=== PATIENT | male | born 1935 | race Caucasian/White ===

== ENCOUNTER → 2017-01-18 | Outpatient (CLI) | payer OTHER, MEDICARE | LOC: BHFA 10:00 | PROVIDERS: ATTEND Internal Medicine | DX: I25.10 Atherosclerotic heart disease of native coronary artery without angina pectoris (principal); R06.00 Dyspnea, unspecified ==

== ENCOUNTER → 2017-01-19 | Outpatient (CLI) | payer OTHER, MEDICARE | LOC: BHFA 13:00 | PROVIDERS: ATTEND Internal Medicine Cardiovascular Disease | DX: R07.9 Chest pain, unspecified (principal); I48.91 Unspecified atrial fibrillation | CPT/HCPCS: 78452; 93017; A9500; J2785 ==

== ENCOUNTER → 2017-04-14 | Outpatient (CLI) | payer OTHER, MEDICARE | LOC: BHFA 10:15 | PROVIDERS: ATTEND Internal Medicine Cardiovascular Disease | DX: I48.91 Unspecified atrial fibrillation (principal) ==

== ENCOUNTER 2017-05-13 11:11 | Day surgery (SDC) | payer OTHER, MEDICARE ==
[2017-05-13] MEDS ORDERED: MIDAZOLAM 2 MG/2 ML VIAL IVP ONE (11:21)
[2017-05-13] MEDS ORDERED: NS 1,000 ML IV ONE (11:21)
--- NOTE | 2017-05-13 11:37 | CPEKG ---
Heart Rate: 76 RR Interval: 789 P-R Interval: 228 QRSD Interval: 76 QT Interval: 312 QTC Interval: 351 P [place]: -42 QRS [place]: 14 T Wave [place]: 214 EKG Severity - ABNORMAL ECG - EKG Impression: SINUS RHYTHM EKG Impression: FIRST DEGREE AV BLOCK EKG Impression: CONSIDER ANTEROSEPTAL INFARCT EKG Impression: REPOL ABNRM SUGGESTS ISCHEMIA, LATERAL LEADS Electronically Signed By: Jeovanny Whittaker 13-May-2017 17:10:28
[2017-05-13 12:05] LABS: % IMMATURE GRANULYOCYTES 0.2 % (0.0-1.1); ABSOLUTE IMMATURE GRANULOCYTES 0.01 10^3/uL (0.00-0.10); ADD DIFF? NO; ADD MORPH? NO; ADD SCAN? NO; ATYPICAL LYMPHOCYTE FLAG 10 (0-99); FRAGMENT RBC FLAG 0 (0-99); HEMOGLOBIN 15.5 g/dL (13.7-17.5); LEFT SHIFT FLG 0 (0-99); LIPEMIA HEMOLYSIS FLAG 90 (0-99); MEAN CELL HEMOGLOBIN 30.3 pg (27.9-34.1); MEAN CELL HEMOGLOBIN CONCENTR. 34.4 g/dL (32.4-36.7); MEAN CELL VOLUME 87.9 fL (81.5-99.8); MEAN PLATELET VOLUME 9.6 fL (8.7-11.7); PLATELET CLUMPS FLAG 0 (0-99); PLATELET COUNT 168 10^3/uL (150-400); RED BLOOD CELL COUNT 5.12 10^6/uL (4.40-6.38); RED CELL DISTRIBUTION WIDTH 14.6 % (11.5-15.2)
[2017-05-13 12:15] LABS: ANION GAP 11 mEq/L (8-16); CALCIUM 9.6 mg/dL (8.5-10.4); CARBON DIOXIDE 20 mEq/l (22-31); CHLORIDE 109 mEq/L (97-110); CREATININE 1.1 mg/dL (0.7-1.3); GLOMERULAR FILTRATION RATE > 60; GLUCOSE 98 mg/dL (70-100); POTASSIUM 4.4 mEq/L (3.5-5.2); SODIUM 140 mEq/L (134-144)
[2017-05-13 12:19] LABS: INR 1.13 (0.83-1.16); PROTIME(PATIENT) 14.4 SEC (12.0-15.0)
[2017-05-13 12:20] LABS: APTT 36.3 SEC (23.0-38.0)
[2017-05-13] MEDS ORDERED: LIDOCAINE 1% 300 MG/30 ML SDV ONE (12:20)
[2017-05-13] MEDS ORDERED: BUPIVACAINE 0.5% 30 ML SDV ONE (12:20)
[2017-05-13] MEDS ORDERED: ceFAZolin 2 GM/DEXTROSE 100 ML IV ONE (13:00)
[2017-05-13] MEDS ORDERED: BACITRACIN IRRIGATION/NS 50,000 UNITS/1,000 ML BTL IRR ONE (13:00)
[2017-05-13] MEDS ORDERED: ATROPINE SULFATE 1 MG/10 ML SYR ONE (14:19)
--- NOTE | 2017-05-14 07:59 | EPPROC ---
Electrophysiology Procedure Note: DIAGNOSTIC ELECTROPHYSIOLOGIC STUDY Procedures performed: 1. Fluoroscopy 2. EP evaluation with RA/RV pace/record, with arrhythmia induction 3. EP evaluation with RA/RV pace record, insert/reposition catheter, with arrhythmia induction INDICATION: This is a 81 yr old male with past history of CAD s/p CABG s/p FL, moderate , who had LINQ implanted for syncope. Pt had NSVT on LINQ monitor. It was unclear if there was a possibility of sustained VT as etiology of previous syncope and hence it was decided to perform EP study for induction of sustained VT. PROCEDURE: Catheters & Anesthesia: The patient arrived in the Electrophysiology Laboratory in the fasting state. The right clavicular region, right groin, & left groin area were prepped & draped in the usual sterile manner. LMA sedation was administered by anesthesiologist. Appropriate non-invasive blood pressure, pulse oximetry & end -tidal CO2 monitoring was established. All catheters were placed percutaneously using the modified Seldinger technique , and advanced into position under fluoroscopic guidance. One 7F sheath was placed in the RFV and through this Livewire was placed. Programmed stimulation was performed from the right ventricle . Ventricular programmed stimulation was performed using standard protocol (2 pacing sites, 2 basic cycle lengths, up to 3 extrastimuli at twice pacing threshold). Ventricular burst pacing and long/short sequence pacing was also performed. The catheters were removed. The patient was transferred to the cardiovascular holding area in stable condition. Vascular access sheaths were removed in the holding area. There were no apparent complications. Results: A. Spontaneous Intervals: Pre ablation SCL 898 ms AH 189 ms HV 59 ms VERP 600/270ms 400/200ms CONCLUSIONS 1. Normal sinus and AV node function. 2. No evidence of accesory AV pathway presence. 3. No sustained arrhythmias induced. 4. No apparent complications.
== END 2017-05-13 18:25 | disposition home or self-care (01) ==
LOC: FCATH 11:11 → UNDOADMOB 11:11 → F2W 11:11 → EDSTATUS 14:00 → FCATH 18:25
PROVIDERS: ATTEND Internal Medicine Cardiovascular Disease
PROC: 4A023FZ Measurement of Cardiac Rhythm, Percutaneous Approach (ICD-10-PCS; principal; 2017-05-13)
DX: I47.2 Ventricular tachycardia (principal); I25.10 Atherosclerotic heart disease of native coronary artery without angina pectoris; I25.2 Old myocardial infarction; Z95.1 Presence of aortocoronary bypass graft
CPT/HCPCS: C1730; J0461; J0690; J1644

== ENCOUNTER → 2018-03-22 | Outpatient (CLI) | payer OTHER, MEDICARE | LOC: BHFA 10:00 | PROVIDERS: ATTEND Internal Medicine Cardiovascular Disease | DX: I48.91 Unspecified atrial fibrillation (principal); R06.02 Shortness of breath ==

== ENCOUNTER 2018-10-23 13:32 | Inpatient (IN) | payer OTHER, MEDICARE ==
--- NOTE | 2018-10-23 14:33 | EDPHY ---
HPI/HX/ROS/PE/MDM Narrative: CHIEF COMPLAINT: "Bad EKG", fatigue HISTORY OF PRESENT ILLNESS: The patient is an anticoagulated (Warfarin) 82 y/ o male with a complicated medical history complaining of fatigue. He has a history of quadruple bypass, aortic heart valve replacement (bovine), cervical surgery, PEs, and antiphospholipid syndrome. He lives in [place] and has been going to cardiac and pulmonary rehab after his valve replacement. Rehab involves exercise while on cardiac monitors. On Wednesday, his therapist noted a lower than normal oxygen level and discontinued therapy when his blood pressure dropped while exercising. He went to his primary care provider on Wednesday at which time he was noted to have an abnormal EKG. Dr. Whittaker was consulted and advised he go to the ED for troponins. He did not want to go to an ED near where he lives so he made the drive here today. He reports increasing fatigue and some lightheadedness. He denies chest pain, shortness of breath, recent illness, or any other associated symptoms. No fever, chills, palpitations, vomiting, diarrhea, urinary complaints, headache. REVIEW OF SYSTEMS: A comprehensive 10 system review of systems is otherwise negative aside from elements mentioned in the history of present illness and medical decision making PAST MEDICAL HISTORY: Quadruple bypass, Bovine aortic valve replacement, cervical spine surgery, PEs, COPD, antiphospholipid syndrome SOCIAL HISTORY: at bedside, lives in [place], retired, nephew lives in [place] VITAL SIGNS: Reviewed by me. Slightly bradycardic on the monitor. GENERAL: Pleasant elderly male. No obvious distress. Alert. HEENT: Atraumatic. Eyes: No icterus, no injection. Mouth: moist mucous membranes. No erythema or lesions. Neck: supple with no adenopathy. LUNGS: Breath sounds diminished throughout, no wheezes, rhonchi or rales. CARDIAC: Bradycardic but regular rate and rhythm, no rubs, murmurs or gallops. ABDOMEN: Soft, nontender, nondistended, bowel sounds normal. BACK: No CVA tenderness. EXTREMITIES: No trauma. No edema. Range of motion is normal throughout. NEURO: Alert and oriented, grossly nonfocal. SKIN: Warm and dry, no rash. PSYCHIATRIC: Normal mentation, no agitation. ED Course: 12-LEAD EKG: Please see the full report in [facility]. My interpretation: prolonged NM interval, previous infarct, right bundle branch block with lateral ST depression Study: X-ray of the chest Indication: Fatigue, abnormal EKG Results: X-ray of the chest was obtained. The results of the study are: Negative for acute findings The study was read by the radiologist, Dr. Ennis. I viewed the images myself on the PACS system. The patient presents with fatigue and an abnormal EKG. He reports associated lightheadedness. EKG here demonstrates a right bundle-branch block, which is previously known, and Abnormal EKG causing concern was an increasing NM interval. Plan for CBC, basic metabolic panel, coagulation panel, troponin, BNP , chest x-ray, and EKG. 3:45 PM - I obtained the previous EKG from [place]. Hand written notations note a possible new right bundle branch block and prolonging NM interval. Patient will be admitted to the hospitalist service here with Cardiology consultation. Course discussed with Dr. Juan who accepts admission. MDM: Differential diagnosis of the patient's weakness and fatigue was considered including but not limited to electrolyte abnormality, anemia, cardiac ischemia, arrhythmias, bradycardia, and infectious causes. - Data Points Imaging Results: Imaging Impressions Chest X-Ray 10/23/18 14:34 Impression: 1. Bibasilar atelectasis and asymmetric elevation right hemidiaphragm. 2. Minimal cardiomegaly. No failure or effusion. Laboratory Results: Laboratory Results 10/23/18 14:24 10/23/18 14:24 10/23/18 10/23/18 10/23/18 14:30 14:24 14:24 WBC RBC Hgb Hct MCV MCH MCHC RDW Plt Count MPV Neut % (Auto) Lymph % (Auto) Webb % (Auto) Eos % (Auto) Baso % (Auto) Nucleat RBC Rel Count Absolute Neuts (auto) Absolute Lymphs (auto) Absolute Monos (auto) Absolute Eos (auto) Absolute Basos (auto) Absolute Nucleated RBC Immature Gran % Immature Gran # PT INR APTT Sodium Potassium Chloride Carbon Dioxide Anion Gap BUN Creatinine Estimated GFR Glucose Calcium POC Troponin I 0.00 ng/mL ng/mL (0.00-0.08) Troponin I < 0.012 ng/mL ng/mL (0.000-0.034) NT-Pro-B Natriuret Pep 444 pg/mL pg/mL (0-450) TSH 1.210 uIU/mL uIU/mL (0.465-4.680) 10/23/18 10/23/18 10/23/18 14:24 14:24 14:24 WBC 5.40 10^3/uL 10^3/uL (3.80-9.50) RBC 4.42 10^6/uL 10^6/uL (4.40-6.38) Hgb 13.6 g/dL L g/dL (13.7-17.5) Hct 40.5 % % (40.0-51.0) MCV 91.6 fL fL (81.5-99.8) MCH 30.8 pg pg (27.9-34.1) MCHC 33.6 g/dL g/dL (32.4-36.7) RDW 13.3 % % (11.5-15.2) Plt Count 137 10^3/uL L 10^3/uL (150-400) MPV 10.2 fL fL (8.7-11.7) Neut % (Auto) 60.9 % % (39.3-74.2) Lymph % (Auto) 19.6 % % (15.0-45.0) Webb % (Auto) 13.9 % H % (4.5-13.0) Eos % (Auto) 4.3 % % (0.6-7.6) Baso % (Auto) 0.9 % % (0.3-1.7) Nucleat RBC Rel Count 0.0 % % (0.0-0.2) Absolute Neuts (auto) 3.29 10^3/uL 10^3/uL (1.70-6.50) Absolute Lymphs (auto) 1.06 10^3/uL 10^3/uL (1.00-3.00) Absolute Monos (auto) 0.75 10^3/uL 10^3/uL (0.30-0.80) Absolute Eos (auto) 0.23 10^3/uL 10^3/uL (0.03-0.40) Absolute Basos (auto) 0.05 10^3/uL 10^3/uL (0.02-0.10) Absolute Nucleated RBC 0.00 10^3/uL 10^3/uL (0-0.01) Immature Gran % 0.4 % % (0.0-1.1) Immature Gran # 0.02 10^3/uL 10^3/uL (0.00-0.10) PT 23.2 SEC H SEC (12.0-15.0) INR 2.05 H (0.83-1.16) APTT 44.8 SEC H SEC (23.0-38.0) Sodium 139 mEq/L mEq/L (135-145) Potassium 4.6 mEq/L mEq/L (3.3-5.0) Chloride 106 mEq/L mEq/L (97-110) Carbon Dioxide 25 mEq/l mEq/l (22-31) Anion Gap 8 mEq/L mEq/L (6-14) BUN 33 mg/dL H mg/dL (7-23) Creatinine 1.3 mg/dL mg/dL (0.7-1.3) Estimated GFR 53 Glucose 112 mg/dL H mg/dL (70-100) Calcium 9.4 mg/dL mg/dL (8.5-10.4) POC Troponin I Troponin I NT-Pro-B Natriuret Pep TSH Medications Given: Acetaminophen (Tylenol) 650 mg PO Q4HRS PRN PRN Reason: Pain, Mild/Fever, Can Take PO Stop: 04/21/19 17:37 Last Admin: 10/23/18 19:51 Dose: 650 mg Rosuvastatin Calcium (Crestor) 10 mg PO [facility] Stop: 04/21/19 20:59 Last Admin: 10/23/18 19:53 Dose: Not Given Warfarin Sodium (Coumadin) 4 mg PO [facility] Stop: 04/21/19 20:59 Last Admin: 10/23/18 19:50 Dose: 4 mg Point of Care Test Results: Chemistry 10/23/18 14:30 POC Troponin I 0.00 ng/mL ng/mL (0.00-0.08) General Time Seen by Provider: 10/23/18 14:06 Initial Vital Signs: Initial Vital Signs Temperature (C) 36.6 C 10/23/18 13:44 Heart Rate 48 L 10/23/18 13:44 Respiratory Rate 16 10/23/18 13:44 Blood Pressure 142/71 H 10/23/18 13:44 O2 Sat (%) 91 L 10/23/18 13:44 O2 Delivery Mode Room Air Allergies/Adverse Reactions: tramadol Allergy (Intermediate, Verified 10/23/18 13:40) Other-Enter Comments Home Medications: Medication Instructions Recorded Aspirin [Aspirin 81mg (OTC)] 81 mg PO DAILY 04/10/16 Pantoprazole Sodium [Protonix] 40 mg PO DAILY 04/10/16 Thyroid,Pork [[place] Thyroid] 90 mg PO DAILY 04/10/16 Multivitamins [Multivitamin (*)] 1 each PO DAILY 05/13/17 inFLIXimab [Remicade Inj 100 mg 1 each IV Q56D 05/13/17 (*)] Acetaminophen [Tylenol ES 500 mg 1,500 mg PO HS 10/23/18 (*)] Herbals/Supplements -Info Only 1 ea PO DAILY 10/23/18 Naproxen Sodium [Aleve 220 MG (*)] 440 mg PO DAILY 10/23/18 Rosuvastatin Calcium [Crestor 20mg 10 mg PO HS 10/23/18 (*)] Warfarin Sodium [Coumadin 4MG (*)] 4 mg PO HS 10/23/18 Departure - Departure Disposition: [facility] Inpatient Acute Clinical Impression: Abnormal EKG Fatigue Qualifiers: Fatigue type: unspecified Qualified Code(s): R53.83 - Other fatigue Condition: Fair Report Scribed for: Rose Bolanos Report Scribed by: Radha Sullivan Date of Report: 10/23/18 Time of Report: 15:45 Physician Review and Approval Statement: Portions of this note were transcribed by a medical receptionist medical assistant. I personally performed a history, physical exam, medical decision making, and confirmed accuracy of information the transcribed note.
[2018-10-23 14:42] LABS: PLATELET COUNT 137 10^3/uL (150-400)
[2018-10-23 14:52] LABS: INR 2.05 (0.83-1.16); PROTIME(PATIENT) 23.2 SEC (12.0-15.0)
--- NOTE | 2018-10-23 15:29 | CPEKG ---
Test Reason : OPEN Blood Pressure : / mmHG Vent. Rate : 056 BPM Atrial Rate : 056 BPM P-R Int : 310 ms QRS Dur : 123 ms QT Int : 427 ms P-R-T Axes : 078 -09 011 degrees QTc Int : 413 ms Sinus rhythm Prolonged MT interval Right bundle branch block Inferior infarct, old Confirmed by Joao Teresa ([id number]) on 10/23/2018 3:29:08 PM Referred By: Confirmed By:Joao Teresa
--- NOTE | 2018-10-23 17:12 | PDGENHP ---
History and Physical - Chief Complaint fatigue, abnormal ECG - History of Present Illness 82yo M with extensive cardiovascular history (CAD s/p CABG, carotid stenosis s/ p CEA, AAA s/p endovascular repair, s/p TAVR, atrial fib/flutter, PE on OAC) , COPD presents at recommendation of his cardiology group due to abnormal ECG findings. He was at pulmonary rehab yesterday and he was more hypoxic than usual (requiring 4L instead of 2L) and also reportedly had hypotension with exercise. An ECG was performed which showed RBBB and worsening 1st degree AV block (MO 240s in 2017, 300s yesterday). The providers at rehab contacted his cardiologists office and spoke with Jeovanny Whittaker who recommended that he go to the ED. The patient didn't go yesterday because he didn't want to go to the ED in [place] where he lives so he and his drove 4 hours to [facility] today. Patient only reports worsening of his chronic fatigue. He denies chest pain, palpitations, presyncope/syncope, worsening dyspnea, leg swelling, orthopnea. He reports that his HR gets up to 90-100s at rehab. In the ED, his HR was initially in the upper 40s with stable BP and mentation. ECG showed a RBBB and prolonged MO interval of 310. An initial troponin was negative. He is being investigated for further investigation of his heart block , bradycardia, and hypotension. Case discussed with ED physician Rose Bolanos. History Information - Allergies/Home Medication List Allergies/Adverse Reactions: tramadol Allergy (Intermediate, Verified 10/23/18 13:40) Other-Enter Comments Home Medications: Aspirin [Aspirin 81mg (OTC)] 81 mg PO DAILY 04/10/16 [Last Taken 10/23/18] Pantoprazole Sodium [Protonix] 40 mg PO DAILY 04/10/16 [Last Taken 10/23/18] Thyroid,Pork [Clear Thyroid] 90 mg PO DAILY 04/10/16 [Last Taken 10/23/18] Multivitamins [Multivitamin (*)] 1 each PO DAILY 05/13/17 [Last Taken 10/23/18] inFLIXimab [Remicade Inj 100 mg (*)] 1 each IV Q56D 05/13/17 [Last Taken ] Herbals/Supplements -Info Only 1 ea PO DAILY 10/23/18 [Last Taken Unknown] Rosuvastatin Calcium [Crestor 20mg (*)] 10 mg PO HS 10/23/18 [Last Taken ] Warfarin Sodium [Coumadin 4MG (*)] 4 mg PO HS 10/23/18 [Last Taken 10/22/18] I have personally reviewed and updated: family history, medical history, social history, surgical history - Past Medical History Additional medical history: CAD/anterior [place] s/p CABG (2008), aortic stenosis s/ p TAVR (11/2017), TIA, carotid stenosis s/p CEA (1997), AAA s/p endovascular repair (2012), PE x2 after TAVR with ? antiphospholipid syndrome, atrial fibrillation/flutter, upper GI bleed 2/2 duodenal ulcer, ? IBD, HTN, HLD, chronic exertional hypoxia requiring 2L - Surgical History Additional surgical history: CABG, right endarterectomy, C-spine surgery, AAA repair, TAVR - Family History Positive for: non-pertinent - Social History Smoking Status: Former smoker Alcohol Use: None Drug Use: None Additional social history: Lives with in [place]. Retired air cargo specialist. Review of Systems Review of Systems: ROS: 10pt was reviewed & negative except for what was stated in HPI & below Physical Exam Physical Exam: Temp Pulse Resp BP Pulse Ox 36.6 C 81 16 133/79 H 97 10/23/18 13:44 10/23/18 16:47 10/23/18 16:47 10/23/18 16:47 10/23/18 16:47 Constitutional: no apparent distress, appears nourished, not in pain Eyes: PERRL, anicteric sclera, EOMI Ears, Nose, Mouth, Throat: moist mucous membranes, hearing normal, ears appear normal, no oral mucosal ulcers Cardiovascular: regular rate and rhythym, no murmur, rub, or gallop, systolic murmur, No JVD, No edema Respiratory: no respiratory distress, no rales or rhonchi, clear to auscultation Gastrointestinal: normoactive bowel sounds, soft, non-tender abdomen, no palpable masses Genitourinary: no bladder fullness, no bladder tenderness Skin: warm, normal color, no rashes or abrasions, no fluctuance, no induration, No mottled Musculoskeletal: full muscle strength, no muscle tenderness, normal joint ROM, no joint effusions Neurologic: AAOx3 Psychiatric: interacting appropriately, not anxious, not encephalopathic, thought process linear Lab Data & Imaging Review 10/23/18 14:24 10/23/18 14:24 WBC 5.40 10^3/uL (3.80-9.50) 10/23/18 14:24 RBC 4.42 10^6/uL (4.40-6.38) 10/23/18 14:24 Hgb 13.6 g/dL (13.7-17.5) L 10/23/18 14:24 Hct 40.5 % (40.0-51.0) 10/23/18 14:24 MCV 91.6 fL (81.5-99.8) 10/23/18 14:24 MCH 30.8 pg (27.9-34.1) 10/23/18 14:24 MCHC 33.6 g/dL (32.4-36.7) 10/23/18 14:24 RDW 13.3 % (11.5-15.2) 10/23/18 14:24 Plt Count 137 10^3/uL (150-400) L 10/23/18 14:24 MPV 10.2 fL (8.7-11.7) 10/23/18 14:24 Neut % (Auto) 60.9 % (39.3-74.2) 10/23/18 14:24 Lymph % (Auto) 19.6 % (15.0-45.0) 10/23/18 14:24 Meagher % (Auto) 13.9 % (4.5-13.0) H 10/23/18 14:24 Eos % (Auto) 4.3 % (0.6-7.6) 10/23/18 14:24 Baso % (Auto) 0.9 % (0.3-1.7) 10/23/18 14:24 Nucleat RBC Rel Count 0.0 % (0.0-0.2) 10/23/18 14:24 Absolute Neuts (auto) 3.29 10^3/uL (1.70-6.50) 10/23/18 14:24 Absolute Lymphs (auto) 1.06 10^3/uL (1.00-3.00) 10/23/18 14:24 Absolute Monos (auto) 0.75 10^3/uL (0.30-0.80) 10/23/18 14:24 Absolute Eos (auto) 0.23 10^3/uL (0.03-0.40) 10/23/18 14:24 Absolute Basos (auto) 0.05 10^3/uL (0.02-0.10) 10/23/18 14:24 Absolute Nucleated RBC 0.00 10^3/uL (0-0.01) 10/23/18 14:24 Immature Gran % 0.4 % (0.0-1.1) 10/23/18 14:24 Immature Gran # 0.02 10^3/uL (0.00-0.10) 10/23/18 14:24 PT 23.2 SEC (12.0-15.0) H 10/23/18 14:24 INR 2.05 (0.83-1.16) H 10/23/18 14:24 APTT 44.8 SEC (23.0-38.0) H 10/23/18 14:24 Sodium 139 mEq/L (135-145) 10/23/18 14:24 Potassium 4.6 mEq/L (3.3-5.0) 10/23/18 14:24 Chloride 106 mEq/L (97-110) 10/23/18 14:24 Carbon Dioxide 25 mEq/l (22-31) 10/23/18 14:24 Anion Gap 8 mEq/L (6-14) 10/23/18 14:24 BUN 33 mg/dL (7-23) H 10/23/18 14:24 Creatinine 1.3 mg/dL (0.7-1.3) 10/23/18 14:24 Estimated GFR 53 10/23/18 14:24 Glucose 112 mg/dL (70-100) H 10/23/18 14:24 Calcium 9.4 mg/dL (8.5-10.4) 10/23/18 14:24 POC Troponin I 0.00 ng/mL (0.00-0.08) 10/23/18 14:30 NT-Pro-B Natriuret Pep 444 pg/mL (0-450) 10/23/18 14:24 Visualized and Interpreted Chest x-ray results: Yes Interpretation: CXR: elevated R hemidiaphragm (new), bibasilar atelectasis, sternotomy wires, prosthetic aortic valve, no focal infiltrate or effusion, no pulmonary edema Visualized and Interpreted EKG results: Yes EKG additional interpertation: ECG: sinus with 1st degree AV block (MO 310), RBBB w/repol abnormalities (seen on 2010 ECG but not most recent from 2016), ST depressions laterally (old) Assessment & Plan Assessment: 82yo M with extensive cardiovascular history (CAD s/p CABG, carotid stenosis s/ p CEA, AAA s/p endovascular repair, s/p TAVR, atrial fib/flutter, PE on OAC) , COPD presents at recommendation of his cardiology group due to abnormal ECG findings and hypotension while at rehab. Plan: 1. Bradycardia with worsened 1st degree AV block: MO interval has gone from mid- 200s to low-300s. HR and BP stable now but reportedly had episode of hypotension at rehab. Grossly asymptomatic. - No AV aditi agents - No need for emergent pacemaker - Trend troponin/ecg - Telemetry - TTE - Consult cardiology in AM, interrogate LINQ (last done 10/05, minimum HR 39 , rates mostly 50-90) - Depending on above results, consider ischemic evaluation 2. Right bundle branch block: New since 07/2017 ECG but he's had a PE since then so this isn't necessarily surprising. Has also had on prior ECGs. 3. Chronic fatigue: Unclear if this is related to #1. He hasn't had significant change as of late. 4. CAD s/p CABG: No anginal symptoms currently. Continue aspirin, statin. Apparel Rental Clerk is Cedric Patten. 5. H/o PE: Occurred after TAVR. On warfarin, INR goal 2-3. 6. Aortic stenosis s/p TAVR 11/2017 7. Atrial fibrillation/flutter: [id number], on OAC. Sinus on admit 8. ? antiphospholipid syndrome: Reportedly discovered after PE in November. Odd that this would be discovered in 8th decade of life with no prior clots. Sees Dr Pierre. On warfarin. 9. Thrombocytopenia: Mild, chronic. Diet: cardiac, NPO at midnight Code: DNR Dispo: Admit under observation
[2018-10-23] MEDS ORDERED: ONDANSETRON 4 MG/2 ML VIAL IVP PRN (17:38)
[2018-10-23] MEDS ORDERED: ACETAMINOPHEN 325 MG TAB PO PRN (17:38)
[2018-10-23] MEDS ORDERED: ONDANSETRON DISINTEGRATING 4 MG TAB PO PRN (17:38)
[2018-10-23] MEDS: WARFARIN SODIUM 4 MG TAB PO SCH (19:50)
[2018-10-23] MEDS: ROSUVASTATIN CALCIUM 20 MG TAB PO SCH (19:53)
[2018-10-24 04:49] LABS: INR 2.23 (0.83-1.16); PLATELET COUNT 136 10^3/uL (150-400); PROTIME(PATIENT) 24.7 SEC (12.0-15.0)
--- NOTE | 2018-10-24 09:51 | HOSPPROG ---
Hospitalist Progress Note Assessment/Plan: 82 year old male with pmh of CAD ,s/p CABG, PE on coumadin, HTN, HLD, COPD, chronic hypoxia here with symptomatic bradycardia and 1st degree ab block Bradycardia- ECG reviewed and with 1st degree AV block, which is not new. Telemetry showing rates in the 50s vitals remain stable however. Case discussed with cardiology who will interrogate LINQ. -await device interrogation -TTE pending -monitor on telemetry PE on coumadin- multiple PEs which occurred on anticoagulation. On coumadin with INR goal 2-3. CAD- s/p 4 vessel CABG. on crestor, asa, No evidence of new ischemia, and no angina COPD- supposed to be on 2 liters in [place] but per patient is non compliant. PRN nebs, and oxygen PRN HLD- cont crestor. IBD-receives rituxan infusions. Hypothyroid- on armour. TSH WNL Subjective: generalized fatigue but no chest pain, sob, faintness or dizziness Objective: Vital Signs Temp Pulse Resp BP Pulse Ox 36.5 C 90 16 136/70 H 92 10/24/18 07:46 10/24/18 07:46 10/24/18 07:46 10/24/18 07:46 10/24/18 07:46 Laboratory Results 10/24/18 03:55 10/24/18 03:55 10/23/18 10/24/18 10/25/18 05:59 05:59 05:59 Intake Total 300 200 Balance 300 200 PT 24.7 SEC (12.0-15.0) H 10/24/18 03:55 INR 2.23 (0.83-1.16) H 10/24/18 03:55 - Physical Exam Constitutional: no apparent distress, appears nourished, not in pain Eyes: PERRL, anicteric sclera, EOMI Ears, Nose, Mouth, Throat: moist mucous membranes, hearing normal, ears appear normal, no oral mucosal ulcers Cardiovascular: bradycardia Respiratory: no respiratory distress, no rales or rhonchi, clear to auscultation Gastrointestinal: normoactive bowel sounds, soft, non-tender abdomen, no palpable masses Genitourinary: no bladder fullness, no bladder tenderness, no renal bruits Skin: no rashes or abrasions, no fluctuance, no induration Musculoskeletal: full muscle strength, no muscle tenderness, normal joint ROM Neurologic: AAOx3, sensation intact bilaterally Psychiatric: interacting appropriately, not anxious, not encephalopathic, thought process linear Lymph, Heme, Immunologic: no cervical LAD, no supraclavicular LAD ICD10 Worksheet Patient Problems: Problems Problem Status Onset Abnormal EKG Acute Fatigue Acute
[2018-10-24] MEDS: ASPIRIN 81 MG CHEWABLE TAB PO SCH (10:02)
[2018-10-24] MEDS: THYROID 60 MG TAB PO SCH (10:02)
[2018-10-24] MEDS: PANTOPRAZOLE SODIUM 40 MG TAB PO SCH (10:02)
--- NOTE | 2018-10-24 14:57 | ECHO ---
[email or web address] [address] [address] Main: [phone] Fax: Transthoracic Echocardiogram Name: HIEN ACEVEDO MR#: [id number] Study Date: 10/24/2018 Study Time: 09:35 AM Date of : 1935 Age: 82 year(s) Height: 172.7 cm (68 in.) Weight: 80.29 kg (177 lb.) BSA: 1.94 m2 Gender: Male Examination: Echo Indication: Post TAVR at [facility]/new EKG changes Image Quality: Contrast: Requested by: Miguel Juan BP: 136 mmHg/70 mmHg Heart Rate: Rhythm: Indication: Post TAVR at [facility]/new EKG changes Procedure Staff Assistant Editor: Velma Gage RDCS Reading Physician: Chano Smith MD Requesting Provider: Conclusions: Normal size left ventricle. No LV hypertrophy. Normal global systolic LV function. The ejection fraction is estimated to be 50-55 %. No regional wall motion abnormality. Diastolic dysfunction is present. . Normal size right ventricle. The left atrium is moderately to severely dilated. The right atrium is normal in size. Mild mitral annular calcification. Mild mitral valve regurgitation is present. There is no aortic valve regurgitation. TAVR in place. AV max PG is 25mmHG. AV mean PG is 13mmHG.. The tricuspid valve is normal in appearance and function. Mild tricuspid regurgitation is present. RVSP is 37mHG.. The pulmonic valve is normal in appearance and function. Trivial pulmonic valve regurgitation. The aorta is normal. No pericardial effusion. The peak and mean velocities across the TAVR have decreased compared to the study dated 03/22/2018. Previous peak and mean were 30 and 14mmHg and are now measured at 25 and 13mmHg. The pulmonary pressure has decreased from 48 to 37mmHg. There are no other significant changes. Measurements: Chambers Valvular Assessment AV/MV Valvular Assessment TV/PV Normal Normal Normal Name Value Range Name Value Range Name Value Range Patient: HIEN ACEVEDO Study Date: 10/24/2018 Page 1 of 2 09:35 AM IVSd (2D): 0.9 cm (0.6 cm-1.1 AV Vmax: 2.48 m/s (1 m/s-1.7 TR Vmax: 2.84 mm/s ( - ) cm) m/s) TR PGmax: 32 mmHg ( - ) LVDd (2D): 4.9 cm (4.2 cm-5.9 AV meanP mmHg ( - ) syst. PAP: 37 mmHg ( - ) cm) MV E Vmax: 0.88 m/s ( - ) LVDs (2D): 3.0 cm (2.1 cm-4 MV A Vmax: 1.08 m/s ( - ) cm) MV E/A: 0.81 ( - ) LVPWd (2D): 1.0 cm (0.6 cm-1 cm) LVOTd 2.1 cm 2.1 cm mm EF Range: 50-55 % Continued Measurements: Chambers Valvular Assessment AV/MV Valvular Assessment TV/PV Name Value Name Value Name Value LADs: 5.2 cm MV E' Septal: 0.04 m/s CVP (est.): 5 mmHg LADs Lon.5 cm MV E/E' Septal: 19.70 LA Area: 27.2 cm2 MV E/E' Lateral: 10.50 LA Volume: 86 ml LA Volume Index: 44.3 ml/m2 Additional Vessels Name Value Ao Ascendin.6 cm Findings: Left Ventricle: Normal size left ventricle. No LV hypertrophy. Normal global systolic LV function. The ejection fraction is estimated to be 50-55 %. No regional wall motion abnormality. Diastolic dysfunction is present. . Right Ventricle: Normal size right ventricle. Left Atrium: The left atrium is moderately to severely dilated. Right Atrium: The right atrium is normal in size. Mitral Valve: Mild mitral annular calcification. Mild mitral valve regurgitation is present. Aortic Valve: There is no aortic valve regurgitation. TAVR in place. AV max PG is 25mmHG. AV mean PG is 13mmHG.. Tricuspid Valve: The tricuspid valve is normal in appearance and function. Mild tricuspid regurgitation is present. RVSP is 37mHG.. Pulmonic Valve: The pulmonic valve is normal in appearance and function. Trivial pulmonic valve regurgitation. Aorta: The aorta is normal. Pericardium: No pericardial effusion. (No Signature Object) Patient: HIEN ACEVEDO Study Date: 10/24/2018 Page 2 of 2 09:35 AM [id number]
--- NOTE | 2018-10-24 15:28 | PDMN ---
Medical Necessity Medical necessity: [facility] Cardiology GR yo presents w/ hypoxia, increased O2 needs and bradycardia HR in 40s. Initially OBS but pt requires additional MN for ongoing fatigue, cardiology consult with LINQ interrogation, pending TTE , ongoing monitoring on tele as HR remains bradycardic. Hx extensive CV hx, CAD s/p CABG, carotid stenosis s/p CEA, AAA s/p endovascular repair, s/p TAVR , atrial fib/flutter, PE on OAC, UGIB, HTN, chronic hypoxia on 2L O2. Change to IP status 10/24/18 @1438 per MD order
--- NOTE | 2018-10-24 16:16 | ASMTCMCOM ---
CM Note CM Note Notes: CM met with pt, discussed in rounds. Pt lives independently with (Nevin, ) in house in [place], [place]. Both still drive and pt says that they are able to get food and manage snow removal. Pt reports his PCP is Sage Balbuena in [place]. CM provided education and handouts on Palliative Care. Waiting on PT/OT eval to determine next steps. CM to follow. Plan: TBD Date Signed: 10/24/2018 04:15 PM Electronically Signed By:HOLLIS Arenas
--- NOTE | 2018-10-24 16:34 | CPEKG ---
Test Reason : OPEN Blood Pressure : / mmHG Vent. Rate : 055 BPM Atrial Rate : 055 BPM P-R Int : 331 ms QRS Dur : 125 ms QT Int : 413 ms P-R-T Axes : 045 -06 007 degrees QTc Int : 395 ms Sinus rhythm Prolonged MN interval Right bundle branch block Confirmed by Marito Banda ([id number]) on 10/24/2018 4:34:19 PM Referred By: Confirmed By:Marito Banda
--- NOTE | 2018-10-24 18:05 | GCON ---
DATE OF CONSULTATION: 10/24/2018 I was asked to see the patient in consultation because of progressive first-degree AV block and right bundle branch block. HISTORY OF PRESENT ILLNESS: The patient is an 82-year-old man with a past cardiac history of intermi ttent right bundle branch block and 1st degree AV block. He also had a history of bypass surgery for an ischemic cardiomyopathy. He recently underwent cardiac catheterization in [place] at the [facility] prior to a TAVR procedure. That heart catheterization revealed that he had se jeffrey paiute-shoshone vessel coronary disease with patent vein grafts to the LAD as well as to the circumflex o btuse marginal system. The right coronary artery had also been grafted, but the paiute-shoshone vessel was wi kirit patent without evidence of flow-limiting obstruction as of November of this year. The patient di d undergo successful TAVR procedure. On Wednesday he was at pulmonary rehab and they noticed he was hav ing increased oxygen requirements compared to normal, so they asked the patient to be seen in the [facility] on Wednesday. He was seen by the nurse practitioner. An EKG was obtain ed and the patient was noted to be in right bundle branch block with a marked first-degree AV block w ith an AV delay of approximately 340 milliseconds. For that reason, it was felt that the patient wou ld benefit from further evaluation by Cardiology. The patient was driven down by private car and adm itted electively yesterday evening. I was asked to see the patient in consultation this morning. At the time of my evaluation, the patient has not had chest pain, shortness of breath, decline in exe rcise tolerance or evidence of chronotropic incompetence. The patient has had a history of recurrent near syncope and because the patient had complex ventricular ectopy on a loop recorder that was plac ed under the care of Dr. Hicks, the patient did undergo a programmed electrical stimulation to determi ne if the patient had evidence of inducible ventricular tachycardia. That study was negative as of 0 05/14/2017. Review of the patient's prior electrocardiograms reveal that the patient does have interm ittent right bundle branch block dating back several years, so this is not necessarily a new finding. At times the patient does not have evidence of that problem. On an EKG dated 11/06/2011 the patien t did have evidence of right bundle branch block and paired and consecutive PVCs again dating back as far as 11/06/2011. On another study, 05/13/2017, the QRS complex was narrow and measured 76 and the re was not evidence of right bundle branch block. PHYSICAL EXAMINATION: GENERAL: Today, the patient is awake, alert, and oriented x3. NECK: His neck reveals no JVD or carotid bruits. HEART: Reveals normal S1 and S2 with a systolic murmur consistent with prior aortic valve replacement surgery. LUNGS: Clear with decreased air movement bilaterally co nsistent with the patient's history of COPD. ABDOMEN: Benign with positive bowel sounds. It is non distended, nontender. EXTREMITIES: Warm, dry, and well perfused without significant peripheral barb a. IMPRESSION AND PLAN: The patient has evidence of conduction system disease post TAVR which could be an indication for pacemaker placement. However, the patient has not had evidence of significant matthew ycardia with heart rates less than 50 on his present monitor. He also does not have symptoms of sync ope, near syncope, or other clinical symptoms of concern. He does have complex ventricular ectopy on interrogation of the loop recorder which is in place, but a known history of a stable ejection fract ion by echo today with improved TAVR gradients compared to an echo in April of this year. I interpret ed the results of the echocardiogram today myself. I think it would be prudent to keep the patient a gain overnight and if no significant tachy or francesco dysrhythmia develops overnight, the patient shoul d be a candidate for discharge from the hospital with careful followup. Copy requested to: primary care physician /[id number]/MODL
[2018-10-24] MEDS ORDERED: ACETAMINOPHEN 500 MG TAB PO SCH (21:00)
[2018-10-24] MEDS: ROSUVASTATIN CALCIUM 20 MG TAB PO SCH (21:04)
[2018-10-24] MEDS: WARFARIN SODIUM 4 MG TAB PO SCH (21:05)
[2018-10-25 04:49] LABS: INR 2.18 (0.83-1.16); PROTIME(PATIENT) 24.3 SEC (12.0-15.0)
[2018-10-25] MEDS ORDERED: NAPROXEN SODIUM 220 MG TAB PO SCH (09:00)
[2018-10-25] MEDS: ASPIRIN 81 MG CHEWABLE TAB PO SCH (09:43)
[2018-10-25] MEDS: PANTOPRAZOLE SODIUM 40 MG TAB PO SCH (09:43)
--- NOTE | 2018-10-25 10:35 | PDDCSUM ---
Discharge Summary Discharge Summary: Date of Admission: 10/23/2018 Date of Discharge: 10/25/2018 Consultants: cardiology (Dr Smith) Studies: 1. TTE: normal LV systolic function (50-55%), diastolic dysfunction, severely dilated LA, mild MR, TAVR in place (mean PG 13, max PG 25), RVSP 37 Discharge Diagnoses: 1. Sinus bradycardia with 1st degree AV block and increased FL interval compared to prior 2. Intermittent right bundle branch block 3. CAD s/p 4v CABG 4. s/p TAVR 5. PE on warfarin 6. IBD on rituximab infusions Brief Hospital Course: 82 year old male with history of CAD s/p CABG, PE on coumadin, s/p TAVR, COPD with chronic hypoxia (2L with exertion) who came to the ED due to abnormal ECG found at clinic the day prior. He was at pulmonary rehab 2 days prior to admission when it was noticed that his oxygen requirements had increased. He was seen in his family medicine clinic the next day where an ECG showed a RBBB and 1st degree AV block with increased FL interval compared to 2017. These findings were thought to be new so he was encouraged to present to an emergency department which he did the following day here at [facility]. We ruled him out for ACS with serial troponins. An echocardiogram demonstrated stable ventricular function and aortic valve gradients. He was monitored on telemetry without any significant tachy- or bradyarrhythmias (HR not less than 50). Cardiology saw the patient in consultation who did not recommend pacemaker placement. Medications: Please refer to EMR for complete list. No changes were made. Follow Up Plan: 1. Follow up with his cad librarian and PCP Physical Exam: Vitals and telemetry reviewed. Alert and oriented. RRR with systolic murmur, lungs clear, abdomen soft, no leg edema or JVD.
[2018-10-25] MEDS: THYROID 60 MG TAB PO SCH (11:27)
[2018-10-25 11:30] VITALS: BP 149/83
--- NOTE | 2018-10-25 14:52 | ASMTCMCOM ---
CM Note CM Note Notes: Pt lives in [place] with who drove him here. Pt was admitted for non-syncopal bradycardia and observed on monitoring overnight, with no significant events. Pt introduced to the concept of palliative care by stamping die maker team and declined at this time. PT recommending outpatient therapy. to provide transport back to [place]. No CM needs noted at this time. Date Signed: 10/25/2018 02:52 PM Electronically Signed By:Sera Avalos
--- NOTE | 2018-10-25 14:56 | ASDISCHSUM ---
Discharge Information Plan Status:Home with No Needs Medically Cleared to Leave:10/24/2018 Discharge Date:10/25/2018 11:55 AM CM D/C Disposition:Home, Routine, Self-Care ADT D/C Disposition:Home, Routine, Self-Care Projected Discharge Date:10/25/2018 11:55 AM Transportation at D/C:Family Discharge Delay Reason: Follow-Up Date:10/25/2018 11:55 AM Discharge Slot: Final Diagnosis:Bradycardia Placement Information Patient Contact Information Contact Name:DL Relationship: Address:[address] City:[facility] Phone: [facility]/Zip Code:[place] [address] Email: Financial Information Financial Class:Medicare Primary Plan Desc:MEDICARE INPATIENT Primary Plan Number:[id number] Secondary Plan Desc:JUVENCIO/CLARA SUPPLEMENT Secondary Plan Number:[id number] Assessment Information LACE LACE Length of stay for Answers: 2 days current admission Acuity / Level of Answers: Yes Care: Did the patient have an inpatient admission? Comorbidities - select Answers: Cerebrovascular disease all that apply (CVA, TIA, aneurysms, vasc ular dementia) Chronic pulmonary disease Coronary Artery Disease Opioid dependence / Chronic pain Previous myocardial infarction Other Notes: Hx of quadruple bypass; PEs, bradycardi a # of Emergency department Answers: 1-2 visits in the last 6 months Score: 17 Date Signed: 10/25/2018 02:53 PM Electronically Signed By:Sera Avalos [facility] CM Progress Note CM Note CM Note Notes: CM met with pt, discussed in rounds. Pt lives independently with (Nevin, ) in house in [place], [place]. Both still drive and pt says that they are able to get food and manage snow removal. Pt reports his PCP is Sage Balbuena in [place]. CM provided education and handouts on Palliative Care. Waiting on PT/OT eval to determine next steps. CM to follow. Plan: TBD Date Signed: 10/24/2018 04:15 PM Electronically Signed By:HOLLIS Arenas [facility] Progress Note CM Note CM Note Notes: Pt lives in [place] with who drove him here. Pt was admitted for non-syncopal bradycardia and observed on monitoring overnight, with no significant events. Pt introduced to the concept of palliative care by playroom attendant team and declined at this time. PT recommending outpatient therapy. to provide transport back to [place]. No CM needs noted at this time. Date Signed: 10/25/2018 02:52 PM Electronically Signed By:Sera Avalos Case Management Discharge Plan Note Case Management Discharge Discharge Order Complete? Answers: Yes Patient to Obtain Answers: via Family Medications Transportation Arranged Answers: Family/Friends Family Notified Answers: Yes Notes: in room Discharge Comments Notes: Pt lives in [place] with who drove him here. Pt was admitted for non-syncopal bradycardia and observed on monitoring overnight, with no significant events. Pt introduced to the concept of palliative care by playroom attendant team and declined at this time. PT recommending outpatient therapy. to provide transport back to [place]. No CM needs noted at this time. Date Signed: 10/25/2018 02:55 PM Electronically Signed By:Sera Avalos Intervention Information Intervention Type:*ORLANDO-Signed Date of Service:10/24/2018 10:39 AM Patient Type:Observation Staff Member:Kelsey Verdin Hours: Discipline: Severity: Comment: Intervention Type:*Occurence 72 Date of Service:10/25/2018 01:32 PM Patient Type:Inpatient Staff Member:Delicia Guzman Hours: Discipline: Severity: Comment:
== END 2018-10-25 11:55 | disposition home or self-care (01) | DRG 310 ==
LOC: F2W 17:11 → OBSVTOIN 10-24 14:38
PROVIDERS: ADMIT Internal Medicine; ATTEND Internal Medicine
DX: I44.0 Atrioventricular block, first degree (principal); I45.10 Unspecified right bundle-branch block; R00.1 Bradycardia, unspecified; R53.82 Chronic fatigue, unspecified; I25.10 Atherosclerotic heart disease of native coronary artery without angina pectoris; I48.91 Unspecified atrial fibrillation; I48.92 Unspecified atrial flutter; E03.9 Hypothyroidism, unspecified; Z66 Do not resuscitate; Z79.01 Long term (current) use of anticoagulants; Z86.711 Personal history of pulmonary embolism; Z95.1 Presence of aortocoronary bypass graft; Z95.3 Presence of xenogenic heart valve
CPT/HCPCS: 84484-PO; 97116-GP; 97161-GP; G0378; G8978-GP-CI; G8979-GP-CI; G8980-GP-CI

== ENCOUNTER 2019-03-09 07:20 | Inpatient (IN) | payer OTHER, MEDICARE ==
[2019-03-09] MEDS ORDERED: NS 1,000 ML IV ONE (07:26)
[2019-03-09] MEDS ORDERED: diphenhydrAMINE 25 MG CAP PO ONE (07:26)
[2019-03-09] MEDS ORDERED: BACITRACIN IRRIGATION/NS 50,000 UNITS/1,000 ML BTL IRR ONE (07:26)
[2019-03-09] MEDS ORDERED: ceFAZolin 2 GM/DEXTROSE 100 ML IV ONE (07:26)
[2019-03-09] MEDS ORDERED: DIAZEPAM 5 MG TAB PO ONE (07:26)
[2019-03-09] MEDS ORDERED: IOPAMIDOL (ISOVUE-300) 50 ML VIAL ONE (07:59)
[2019-03-09] MEDS ORDERED: LIDOCAINE 1% 300 MG/30 ML SDV ONE ×2 (07:59→14:37)
[2019-03-09] MEDS ORDERED: LIDO/EPI 1% **for epidural** 30 ML SDV ONE (07:59)
[2019-03-09] MEDS ORDERED: BUPIVACAINE 0.5% 30 ML SDV ONE (07:59)
[2019-03-09] MEDS ORDERED: fentaNYL 100 MCG/2 ML INJ ONE ×2 (07:59→09:58)
[2019-03-09] MEDS ORDERED: MIDAZOLAM 2 MG/2 ML VIAL ONE ×2 (07:59→10:17)
[2019-03-09 08:14] LABS: PLATELET COUNT 139 10^3/uL (150-400)
--- NOTE | 2019-03-09 08:20 | PDHPUP ---
History & Physical Update H&P update statement: This history and physical update is based on an assessment of the patient which was completed after admission or registration (within 24 hours), but prior to the surgery/procedure. H&P update: H&P reviewed & patient examined, no change in patient's condition since H&P completed
--- NOTE | 2019-03-09 08:21 | PDPROPOC ---
Sedation Plan of Care Sedation Plan of Care: vital signs stable, mental status noted, patient educated of risks, benefits, alternatives, patient can tolerate sedation ASA Classification: ASA 3 Planned drugs: fentanyl, midazolam Mallampati Score: Class 2 Mallampati Reference Image: Patient passed 3-3-2 rule?: Yes
[2019-03-09 08:22] LABS: INR 1.31 (0.83-1.16); PROTIME(PATIENT) 15.7 SEC (12.0-15.0)
--- NOTE | 2019-03-09 12:38 | CPIP ---
[f rep st] INVASIVE CARDIAC PROCEDURE DATE OF PROCEDURE: 03/09/2019 PROCEDURE PERFORMED: Dual-chamber pacemaker insertion, which is an MRI conditional device. The altagracia ce is a Biotronik Edora 8 DRT, serial #[id number]. The atrial lead is a Biotronik Solia S45, serial #[id number]. The ventricular lead is a Biotronik Solia S53, serial #[id number]. INDICATIONS/APPROPRIATE USE CRITERIA: The patient has sick sinus syndrome with intermittent pauses a nd near syncope with pauses documented to 7 seconds. The patient is status post TAVR procedure and i s in need of a dual-chamber pacemaker. PROCEDURE IN DETAIL: After informed consent was obtained, n.p.o. status was confirmed, the region of the left subclavicular fossa was cleaned, prepped, and draped in sterile fashion. Approximately 25 cc of 1% lidocaine was utilized for local anesthesia. An ultrasound was used to perform ultrasound g uided access to the left subclavian vein with single anterior puncture of the vessel. The ultrasound device was taken away from the table and a pocket was formed with the use of a 15 blade. Electrocau pedro luis and then local pressure were used for hemostasis. Sharp and blunt dissection were used to form a pacer pocket overlying the pectoralis major fascia. The J-wire was tunneled back into the pacer po cket and a 6-Serbian peel-away sheath was advanced over the wire. A retained wire technique was used to place 2 wires into the subclavian vein and the sheath was then advanced over the lateral wire. Th e ventricular lead was manipulated with care into the right ventricular apex and screwed in place in the low ventricular septum, was found to have a threshold of 0.7 at 0.4, sensing R-waves at 7.8, lead impedance is 636. The lead was sutured in place with 0 silk. The procedure was repeated for the Solia S45. There were multiple spots in the atrium that were trie d. Ultimately, we were able to identify a single spot that would achieve pacing with reasonable thre shold and capture. The P waves were small in all spots that were tried indicating a scarred right at rium. The P waves were measured at 1.2 mV, threshold was found to be 1.1 at 0.4 msec with a lead imp edance of 512 ohms. The lead was sutured in place with 0 silk. The pocket was thoroughly flushed an d checked for bleeding. Hemostasis was achieved with electrocautery and local pressure. The Donte stat was placed into the pocket. Hemostasis was documented by holding pressure for 5 to 6 minutes. This was subsequently washed from the pocket thoroughly. Sterile gauze was removed from the pocket a nd the pocket was noted to be clean and dry. D-Stat was mixed and placed in the pocket. The device was brought to the table and the atrial lead serial number was checked and placed in the upper pole l ead housing. Set screw firmly applied. The procedure was repeated for the ventricular lead in the l ower pole lead housing with documentation of AV sequential pacing. The device was sutured in place w ith 0 silk and the skin was closed with a 3 layered 2-0 Vicryl and 3-0 Vicryl interrupted suture, fol lowed by skin wayne. We turned our attention to the LINQ IQ device. The region of the area was infiltrated with 5 cc of 1 % lidocaine. The skin was sharply incised with a #13 blade and the device was removed with the use o f hemostats. Local pressure was placed over the lead and the skin was closed with a stapled closure. The patient tolerated procedure well without immediate complication, will return to the post cath r ecovery unit where a stat postoperative EKG and chest x-ray will be obtained. FINAL IMPRESSION: Successful dual-chamber pacemaker insertion. /[id number]/MODL
--- NOTE | 2019-03-09 13:25 | CPEKG ---
Test Reason : OPEN Blood Pressure : / mmHG Vent. Rate : 051 BPM Atrial Rate : 051 BPM P-R Int : 330 ms QRS Dur : 135 ms QT Int : 426 ms P-R-T Axes : 036 -28 -04 degrees QTc Int : 393 ms Sinus rhythm Ventricular premature complex Prolonged WI interval Right bundle branch block Anterior infarct, age indeterminate Confirmed by Nita Pennington ([id number]) on 03/09/2019 1:24:50 PM Referred By: Chano Smith Confirmed By:Nita Pennington
[2019-03-09] MEDS ORDERED: FUROSEMIDE 20 MG/2 ML VIAL ONE (13:48)
[2019-03-09] MEDS ORDERED: FUROSEMIDE 20 MG/2 ML VIAL IVP ONE (14:00)
[2019-03-09] MEDS ORDERED: LIDOCAINE 1% 300 MG/30 ML SDV MISC ONE (15:00)
--- NOTE | 2019-03-09 17:44 | ECHO ---
[email or web address] [place] [id number] Main: [phone] Echocardiography Examination Transthoracic Name: HIEN ACEVEDO MR#: [id number] Study Date: 03/09/2019 Study Time: 01:57 PM Date of : 1935 Age: 83 year(s) Height: ( ) Weight: ( ) BSA: Gender: Male Examination: Limited Echo Contrast: Image Quality: Rhythm: Heart Rate: BP: / Indication: Post Pacemaker Procedure Staff Referring Physician: Costume Technician: Fernando Zamora RDCS Reading Physician: Dustin Martin MD Requesting Provider: Ordering Physician: Chano Smith MD Indication: Post Pacemaker Findings Pericardium: There are poor echo windows due to COPD. Subcostal views were utilized.. No pericardial effusion. Exam Details Procedure Ordered: Limited Echo (No Signature Object) Patient: HIEN ACEVEDO Study Date: 03/09/2019 Page 1 of 1 01:57 PM [id number]
--- NOTE | 2019-03-09 18:21 | POSTOPPROG ---
Post Op Note Date of Operation: 03/09/19 Surgeon: Marito Zamora Anesthesia: Local (Specify) Pre-op Diagnosis: LEFT PNEUMOTHORAX AND RESPIRATORY DISTRESS Post-op Diagnosis: SAME Indication: RESPIRATORY DISTRESS Procedure: LEFT PNEUMO CATH PLACEMENT Findings: RESOLUTION OF PNEUMOTHORAX WITH LUNG EXPANSION Inf/Abcess present in the surg proc area at time of surgery?: No Depth: Organ Space EBL: Minimal Complications: NONE Drains: Constavac
--- NOTE | 2019-03-09 18:35 | CPEKG ---
Test Reason : OPEN Blood Pressure : / mmHG Vent. Rate : 077 BPM Atrial Rate : 070 BPM P-R Int : 377 ms QRS Dur : 160 ms QT Int : 415 ms P-R-T Axes : 114 253 032 degrees QTc Int : 470 ms A-V dual-paced rhythm with some inhibition compared with 03/09/2019 at 7:52 a.m. pacing now present Confirmed by Nita Pennington ([id number]) on 03/09/2019 6:34:52 PM Referred By: Chano Smith Confirmed By:Nita Pennington
[2019-03-09] MEDS: ROSUVASTATIN CALCIUM 10 MG TAB PO SCH (20:52)
[2019-03-09] MEDS: ACETAMINOPHEN 500 MG TAB PO SCH (20:52)
[2019-03-10] MEDS: FLUORIDE DT SCH ×3 (01:34→21:32)
[2019-03-10 04:52] LABS: PLATELET COUNT 108 10^3/uL (150-400)
--- NOTE | 2019-03-10 08:59 | SOAPPROG ---
SOAP Progress Note Assessment/Plan: Assessment: COMFORTABLE/ VS STABLE/ AFEBRILE STILL TINY AIRLEAK CXR WELL EXPANDED BS EQUAL/ TUBE SITE OK COR RR Plan:CONTINUE SUCTION 03/10/19 08:57 Objective: Vital Signs Temp Pulse Resp BP Pulse Ox 36.6 C 60 18 132/78 H 96 03/10/19 07:14 03/10/19 07:14 03/10/19 07:14 03/10/19 07:14 03/10/19 07:14 Laboratory Results 03/10/19 04:20 03/10/19 04:20 03/09/19 03/10/19 03/11/19 05:59 05:59 05:59 Intake Total 1650 Output Total 1970 150 Balance -320 -150 PT 15.7 SEC (12.0-15.0) H 03/09/19 08:00 INR 1.31 (0.83-1.16) H 03/09/19 08:00 ICD10 Worksheet Patient Problems: Problems Problem Status Onset Abnormal EKG Acute Fatigue Acute
[2019-03-10] MEDS: THYROID 60 MG TAB PO SCH (09:22)
[2019-03-10] MEDS: DOCUSATE SODIUM 100 MG CAP PO SCH (09:22)
--- NOTE | 2019-03-10 13:09 | PDCARPN ---
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 He is now s/p chest tube. Plan: #. SSS s/p PPM: Biotronik check with normal device function #. PTX: appreciate Dr. Zamora' help with this #. PAF: [id number] of 6 would recommend resumption of Warfarin as soon as deemed safe from gen surg standpoint consider LMWH #. CAD/PAD: resume ASA and continue statin #. DVT ppx: will check on adding LMWH #. LOS: ongoing inpatient due to need for chest tube 03/10/19 12:48 Subjective: No cp or shortness of breath. No significant pain from chest tube. Objective: Vital Signs (8 Hrs) Temp Pulse Resp BP Pulse Ox 03/10/19 11:26 98.3 F 64 20 129/71 H 97 03/10/19 07:14 97.9 F 60 18 132/78 H 96 Intake/Output (24 Hrs) 03/09/19 03/10/19 03/11/19 05:59 05:59 05:59 Intake Total 1650 Output Total 1969 150 Balance -320 -150 Intake: Oral (ml) 950 IV Intake (ml) 700 Output: Urine (ml) 1969 150 Urinal 1969 150 Chest Tube Output (ml) 0 Left Pleural 0 Other: Weight 80.9 kg Number of Voids Urinal 1 Result Diagrams: 03/10/19 04:20 03/10/19 04:20 EKG: A- and V- paced Telemetry: reviewed - Physical Exam Constitutional: no apparent distress Eyes: PERRL Ears, Nose, Mouth, Throat: moist mucous membranes Cardiovascular: regular rate and rhythm, systolic murmur Respiratory: clear to auscultate bilat Gastrointestinal: normoactive bowel sounds Skin: no rashes, no abrasions Neurologic: AAOx3 Psychiatric: cooperative, interactive ICD10 Worksheet Patient Problems: Problems Problem Status Onset Fatigue Acute Abnormal EKG Acute
[2019-03-10] MEDS: ASPIRIN 81 MG CHEWABLE TAB PO SCH (18:28)
--- NOTE | 2019-03-10 18:42 | PDMN ---
Medical Necessity Medical necessity: Change to IP, as of 03/10/19, per MD; los >2 mn s/p pacer placement & s/p chest tube placement for pneumothorax; requiring further monitoring & chest tube to continuous suction; comorbid advanced age
[2019-03-10] MEDS: ACETAMINOPHEN 500 MG TAB PO SCH (21:32)
[2019-03-10] MEDS: ROSUVASTATIN CALCIUM 10 MG TAB PO SCH (21:32)
[2019-03-11] MEDS: ASPIRIN 81 MG CHEWABLE TAB PO SCH (09:01)
[2019-03-11] MEDS: DOCUSATE SODIUM 100 MG CAP PO SCH (09:01)
[2019-03-11] MEDS: ENOXAPARIN 40 MG/0.4 ML SYR SC SCH (09:04)
[2019-03-11] MEDS: FLUORIDE DT SCH ×2 (09:46→21:54)
[2019-03-11] MEDS: THYROID 60 MG TAB PO SCH (10:11)
--- NOTE | 2019-03-11 11:52 | PDCARPN ---
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 He is now s/p chest tube. Plan: #. SSS s/p PPM: Biotronik check with normal device function #. PTX: appreciate Dr. Rodriguez's help with this #. PAF: [id number] of 6 would recommend resumption of Warfarin as soon as deemed safe from gen surg standpoint continue LMWH #. CAD/PAD: resume ASA and continue statin #. DVT ppx: on LMWH #. LOS: ongoing inpatient due to need for chest tube 03/11/19 12:58 Subjective: Comfortable. Breathing is comfortable. Reviewed/Discussed With: other (Dr. Rodriguez) Objective: Vital Signs (8 Hrs) Temp Pulse Resp BP Pulse Ox 03/11/19 11:08 97.4 F 75 18 131/87 H 98 03/11/19 07:37 97.4 F 65 18 130/75 H 98 03/11/19 04:37 98.3 F 64 18 106/68 97 Intake/Output (24 Hrs) 03/10/19 03/11/19 03/12/19 05:59 05:59 05:59 Intake Total 1650 Output Total 1969 858 250 Balance -320 -858 -250 Intake: Oral (ml) 950 IV Intake (ml) 700 Output: Urine (ml) 1969 850 250 Urinal 1969 850 250 Chest Tube Output (ml) 0 8 Left Pleural 0 8 Other: Weight 80.9 kg Number of Voids Urinal 1 Result Diagrams: 03/10/19 04:20 03/10/19 04:20 Telemetry: reviewed - Physical Exam Constitutional: no apparent distress Eyes: PERRL Ears, Nose, Mouth, Throat: moist mucous membranes Cardiovascular: regular rate and rhythm Respiratory: clear to auscultate bilat, other (L basilar crackle) Skin: no rashes, no abrasions Neurologic: AAOx3 Psychiatric: cooperative, interactive ICD10 Worksheet Patient Problems: Problems Problem Status Onset Abnormal EKG Acute Fatigue Acute
--- NOTE | 2019-03-11 12:51 | SOAPPROG ---
SOAP Progress Note Assessment/Plan: Assessment: 83-year-old male status post pacemaker placement with iatrogenic pneumothorax status post chest tube placement Vitals remained stable Chest x-ray shows that the pneumothorax is maybe a little bit bigger today, he has good breath sounds remains on supplemental oxygen. Chest tube still does have 1 chamber expiratory air leak with cough, I interrogated the unit and it appears to be working appropriately. Need to continue this to suction at all times. Anticipate that the leak will seal with time, will re-evaluate tomorrow. Needs to remain on suction Plan: 03/11/19 12:50 Subjective: Feels well, wants to go home Objective: Vital Signs Temp Pulse Resp BP Pulse Ox 36.3 C 75 18 131/87 H 98 03/11/19 11:08 03/11/19 11:08 03/11/19 11:08 03/11/19 11:08 03/11/19 11:08 Laboratory Results 03/10/19 04:20 03/10/19 04:20 03/10/19 03/11/19 03/12/19 05:59 05:59 05:59 Intake Total 1650 Output Total 2618 858 419 Balance -320 -858 -475 PT 15.7 SEC (12.0-15.0) H 03/09/19 08:00 INR 1.31 (0.83-1.16) H 03/09/19 08:00 ICD10 Worksheet Patient Problems: Problems Problem Status Onset Abnormal EKG Acute Fatigue Acute
--- NOTE | 2019-03-11 14:02 | ASMTCMCOM ---
CM Note CM Note Notes: Pt is an 83 yo M who presents with SSS. Pt had pacemaker placed. Currently has a chest tube. No therapies are ordered at this time. CM to follow. Plan: TBD Date Signed: 03/11/2019 02:02 PM Electronically Signed By:HOLLIS Arenas
--- NOTE | 2019-03-11 15:14 | CPEKG ---
Test Reason : OPEN Blood Pressure : / mmHG Vent. Rate : 064 BPM Atrial Rate : 000 BPM P-R Int : 090 ms QRS Dur : 107 ms QT Int : 397 ms P-R-T Axes : 000 -40 084 degrees QTc Int : 410 ms Atrial-ventricular dual-paced rhythm Confirmed by Nita Pennington ([id number]) on 03/11/2019 3:14:04 PM Referred By: Chano Smith Confirmed By:Nita Pennington
[2019-03-11] MEDS: ACETAMINOPHEN 500 MG TAB PO SCH (21:53)
[2019-03-11] MEDS: ROSUVASTATIN CALCIUM 10 MG TAB PO SCH (21:55)
--- NOTE | 2019-03-12 08:30 | PDCARPN ---
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 He is now s/p chest tube. Plan: #. SSS s/p PPM: Biotronik check with normal device function #. PTX: appreciate Dr. Rodriguez's help with this #. PAF/previous TIA: [id number] of 6 would recommend resumption of Warfarin as soon as deemed safe from gen surg standpoint continue LMWH #. CAD/PAD: resume ASA and continue statin #. DVT ppx: on LMWH #. LOS: ongoing inpatient due to need for chest tube with air leak still persistent Order PT for today as patient has not been ambulating/assess conditional status. 03/12/19 08:41 Subjective: No discomfort. Reviewed/Discussed With: other (Dr. Rodriguez) Objective: Vital Signs (8 Hrs) Temp Pulse Resp BP Pulse Ox 03/12/19 04:22 97.3 F 67 16 104/75 96 Intake/Output (24 Hrs) 03/11/19 03/12/19 03/13/19 05:59 05:59 05:59 Intake Total 930 Output Total 858 1177 Balance -858 -247 Intake: Oral (ml) 930 Output: Urine (ml) 850 1175 Urinal 850 1175 Chest Tube Output (ml) 8 2 Left Pleural 8 2 Other: Number of Voids Urinal 1 Result Diagrams: 03/10/19 04:20 03/10/19 04:20 Telemetry: reviewed- SR with paced beats, occasional PVCs - Physical Exam Constitutional: no apparent distress Eyes: anicteric sclera Ears, Nose, Mouth, Throat: moist mucous membranes Cardiovascular: regular rate and rhythm Respiratory: clear to auscultate bilat, reduced air movement Skin: warm, no edema Neurologic: AAOx3 Psychiatric: cooperative, interactive ICD10 Worksheet Patient Problems: Problems Problem Status Onset Abnormal EKG Acute Fatigue Acute
[2019-03-12] MEDS: ASPIRIN 81 MG CHEWABLE TAB PO SCH (08:40)
[2019-03-12] MEDS: DOCUSATE SODIUM 100 MG CAP PO SCH (08:40)
[2019-03-12] MEDS: ENOXAPARIN 40 MG/0.4 ML SYR SC SCH (08:41)
--- NOTE | 2019-03-12 09:24 | SOAPPROG ---
SOAP Progress Note Assessment/Plan: Assessment: 83-year-old male status post pacemaker placement with iatrogenic pneumothorax status post chest tube placement Vitals remained stable No chest x-ray today which I think is appropriate Chest tube is to suction, still has an expiratory air leak which seems improved from previous. Continue to wall suction, continue supplemental oxygen. Chest x-ray tomorrow morning Plan: 03/11/19 12:50 03/12/19 09:23 Subjective: Frustrated Objective: Vital Signs Temp Pulse Resp BP Pulse Ox 36.4 C 70 20 128/79 H 96 03/12/19 08:00 03/12/19 08:00 03/12/19 08:00 03/12/19 08:00 03/12/19 08:00 Laboratory Results 03/10/19 04:20 03/10/19 04:20 03/11/19 03/12/19 03/13/19 05:59 05:59 05:59 Intake Total 930 Output Total 858 1177 Balance -858 -247 PT 15.7 SEC (12.0-15.0) H 03/09/19 08:00 INR 1.31 (0.83-1.16) H 03/09/19 08:00 ICD10 Worksheet Patient Problems: Problems Problem Status Onset Abnormal EKG Acute Fatigue Acute
[2019-03-12] MEDS: THYROID 60 MG TAB PO SCH (10:30)
[2019-03-12] MEDS: FLUORIDE DT SCH ×2 (11:08→21:16)
[2019-03-12] MEDS: ACETAMINOPHEN 500 MG TAB PO SCH (21:16)
[2019-03-12] MEDS: ROSUVASTATIN CALCIUM 10 MG TAB PO SCH (21:17)
--- NOTE | 2019-03-13 09:36 | SOAPPROG ---
SOAP Progress Note Assessment/Plan: Assessment/plan: 83-year-old male status post pacemaker placement with iatrogenic pneumothorax status post chest tube placement, 03/09/19. Still with air leak. Chest xray shows small pneumothorax. May need bigger chest tube, or less likely VATS. Continue to watch for now. S: No complaints. Denies pain and SOB. O: Alert Afebrile RRR Chest: CTAB, no increased WOB, chest tube in place with +air leak Abdomen: soft, nontender 03/13/19 09:33 Objective: Vital Signs Temp Pulse Resp BP Pulse Ox 36.3 C 67 18 133/81 H 95 03/13/19 04:25 03/13/19 04:25 03/13/19 04:25 03/13/19 04:25 03/13/19 04:25 Laboratory Results 03/10/19 04:20 03/10/19 04:20 03/12/19 03/13/19 03/14/19 05:59 05:59 05:59 Intake Total 930 850 Output Total 1177 1055 250 Balance -247 -205 -250 PT 15.7 SEC (12.0-15.0) H 03/09/19 08:00 INR 1.31 (0.83-1.16) H 03/09/19 08:00 ICD10 Worksheet Patient Problems: Problems Problem Status Onset Abnormal EKG Acute Fatigue Acute
[2019-03-13] MEDS: FLUORIDE DT SCH ×2 (10:28→22:26)
[2019-03-13] MEDS: ASPIRIN 81 MG CHEWABLE TAB PO SCH (10:28)
[2019-03-13] MEDS: THYROID 60 MG TAB PO SCH (10:28)
[2019-03-13] MEDS: DOCUSATE SODIUM 100 MG CAP PO SCH (10:28)
[2019-03-13] MEDS: ENOXAPARIN 40 MG/0.4 ML SYR SC SCH (12:11)
--- NOTE | 2019-03-13 17:43 | PDCARPN ---
Cardiology Progress Note Chief Complaint: I am feeling better Assessment/Plan: Assessment: 1. S/p permanent pacemaker for indication of SSS and sinus arrest and pauses with associated lightheadedness and syncope. The procedure was complicated by a large tension pneumothorax requiring urgent chest tube placement. There is still an air leak. I discussed with Dr. Zamora and he will plan a larger tube if air leak remains tomorrow in spite of hooking the tube to a Heimlich valve tomorrow morning. Plan: As above. 03/13/19 17:38 Reviewed/Discussed With: family, multidisciplinary team Time Spent with Patient: greater than 25 minutes Time Spent with Patient: Greater than 25 minutes spent on this patients care, greater than 50% of time spent counseling, educating, and coordinating care regarding the above mentioned plan. Objective: Vital Signs (8 Hrs) Temp Pulse Resp BP Pulse Ox 03/13/19 15:34 36.8 C 79 18 138/79 H 94 Intake/Output (24 Hrs) 03/12/19 03/13/19 03/14/19 05:59 05:59 05:59 Intake Total 930 850 400 Output Total 1177 1055 750 Balance -247 -205 -350 Intake: Oral (ml) 930 850 400 Output: Urine (ml) 1175 1050 750 Urinal 1175 1050 750 Chest Tube Output (ml) 2 5 Left Pleural 2 5 Other: Number of Voids Urinal 1 Result Diagrams: 03/13/19 11:07 03/10/19 04:20 Telemetry: Normal AV sequential pacing. - Physical Exam Constitutional: WDWN, no apparent distress Eyes: PERRL, EOMI, anicteric sclera Ears, Nose, Mouth, Throat: moist mucous membranes Cardiovascular: regular rate and rhythm, no rubs, no gallops Respiratory: clear to auscultate bilat, no crackles, no wheezes, other ( decreased air movement at apex bilaterally recduced air movement at right lung base known diaphragmatic paralysis) Gastrointestinal: normoactive bowel sounds, no tenderness Skin: no rashes ICD10 Worksheet Patient Problems: Problems Problem Status Onset Fatigue Acute Abnormal EKG Acute
[2019-03-13] MEDS: ACETAMINOPHEN 500 MG TAB PO SCH (20:21)
[2019-03-13] MEDS: ROSUVASTATIN CALCIUM 10 MG TAB PO SCH (20:23)
[2019-03-14] MEDS: ENOXAPARIN 40 MG/0.4 ML SYR SC SCH (08:47)
[2019-03-14] MEDS: ASPIRIN 81 MG CHEWABLE TAB PO SCH (08:48)
[2019-03-14] MEDS: DOCUSATE SODIUM 100 MG CAP PO SCH (08:48)
[2019-03-14] MEDS: FLUORIDE DT SCH ×2 (08:54→20:22)
--- NOTE | 2019-03-14 09:05 | SOAPPROG ---
SOAP Progress Note Assessment/Plan: Assessment: COMFORTABLE/ VS STABLE/ AFEBRILE STILL TINY AIRLEAK CXR WELL EXPANDED BS EQUAL/ TUBE SITE OK COR RR Plan:CONTINUE SUCTION 03/10/19 08:57 03/14/19 09:04 no air leak today/ cxr pending/ hopefully can dc suction and then tube if no recurrence Objective: Vital Signs Temp Pulse Resp BP Pulse Ox 36.8 C 71 18 125/81 H 97 03/14/19 07:39 03/14/19 07:39 03/14/19 07:39 03/14/19 07:39 03/14/19 07:39 Laboratory Results 03/13/19 11:07 03/10/19 04:20 03/13/19 03/14/19 03/15/19 05:59 05:59 05:59 Intake Total 850 950 Output Total 1055 1000 Balance -205 -50 PT 15.7 SEC (12.0-15.0) H 03/09/19 08:00 INR 1.31 (0.83-1.16) H 03/09/19 08:00 ICD10 Worksheet Patient Problems: Problems Problem Status Onset Abnormal EKG Acute Fatigue Acute
[2019-03-14] MEDS: THYROID 60 MG TAB PO SCH (09:56)
--- NOTE | 2019-03-14 15:19 | ASMTCMCOM ---
CM Note CM Note Notes: CM reviewed pts chart. PT is recommending HC. CM met w/ pt and his for dispo planning. Both are agreeable to having HC services. Pt reports that he goes to [facility] and has been to their outpatient rehab services. CM made a referral to [facility]. CM spoke to their admissions person and they are able to accept. Pts address is [address] [place] [address]. CM confirmed pts phone number and PCP. CM to follow. Plan: [facility]; PT, RN Date Signed: 03/14/2019 03:18 PM Electronically Signed By:HOLLIS Hutchins
[2019-03-14] MEDS: WARFARIN SODIUM 4 MG TAB PO SCH (20:19)
[2019-03-14] MEDS: ROSUVASTATIN CALCIUM 10 MG TAB PO SCH (20:19)
[2019-03-14] MEDS: ACETAMINOPHEN 500 MG TAB PO SCH (20:20)
[2019-03-15 04:56] LABS: INR 1.09 (0.83-1.16); PROTIME(PATIENT) 13.7 SEC (12.0-15.0)
[2019-03-15] MEDS: ASPIRIN 81 MG CHEWABLE TAB PO SCH (08:35)
[2019-03-15] MEDS: DOCUSATE SODIUM 100 MG CAP PO SCH (08:35)
[2019-03-15] MEDS: THYROID 60 MG TAB PO SCH (08:35)
[2019-03-15] MEDS: ENOXAPARIN 40 MG/0.4 ML SYR SC SCH (08:36)
--- NOTE | 2019-03-15 09:03 | SOAPPROG ---
SOAP Progress Note Assessment/Plan: Assessment/Plan: 83-year-old male status post pacemaker placement with iatrogenic pneumothorax status post chest tube placement, 03/09/19. Pneumo-catheter off suction overnight. PTX larger this am. Films reviewed by myself and Dr. Zamora. Return tube to suction. May need larger chest tube. Will make NPO, hold lovenox. Possible tube thoracostomy later today. 03/15/19 08:55 Objective: Vital Signs Temp Pulse Resp BP Pulse Ox 36.4 C 76 18 138/77 H 97 03/15/19 08:00 03/15/19 08:00 03/15/19 08:00 03/15/19 08:00 03/15/19 08:00 Laboratory Results 03/13/19 11:07 03/10/19 04:20 03/14/19 03/15/19 03/16/19 05:59 05:59 05:59 Intake Total 950 2050 Output Total 1000 Balance -50 2050 PT 13.7 SEC (12.0-15.0) 03/15/19 03:48 INR 1.09 (0.83-1.16) 03/15/19 03:48 ICD10 Worksheet Patient Problems: Problems Problem Status Onset Abnormal EKG Acute Fatigue Acute
[2019-03-15] MEDS: FLUORIDE DT SCH ×2 (09:14→20:59)
[2019-03-15] MEDS ORDERED: NS 500 ML IV ONE (09:54)
[2019-03-15] MEDS ORDERED: MIDAZOLAM 2 MG/2 ML VIAL ONE (17:42)
[2019-03-15] MEDS ORDERED: fentaNYL 100 MCG/2 ML INJ ONE (17:42)
--- NOTE | 2019-03-15 17:45 | PDCARPN ---
Cardiology Progress Note Assessment/Plan: Assessment: 1. S/p permanent pacemaker for indication of SSS and sinus arrest and pauses with associated lightheadedness and syncope. The procedure was complicated by a large tension pneumothorax requiring urgent chest tube placement. There is still an air leak. I discussed with Dr. Zamora and he will plan a larger tube if air leak remains tomorrow in spite of hooking the tube to a Heimlich valve tomorrow morning. As above the patient is slated for a larger tube today, but the procedure has been postponed. I will follow. thank you Dr. Zamora for your help. I will plan on staple removal and pacer interrogation tomorrow. Plan: As above. 03/15/19 17:41 Reviewed/Discussed With: family, multidisciplinary team Objective: Vital Signs (8 Hrs) Temp Pulse Resp BP Pulse Ox 03/15/19 16:00 36.4 C 77 18 135/80 H 97 03/15/19 12:00 36.6 C 80 18 119/91 H 98 03/15/19 10:32 36.4 C 81 12 133/92 H 97 Intake/Output (24 Hrs) 03/14/19 03/15/19 03/16/19 05:59 05:59 05:59 Intake Total 950 2050 Output Total 1000 Balance -50 2050 Intake: Oral (ml) 950 2050 IV Intake (ml) 0 Output: Urine (ml) 1000 Urinal 1000 Chest Tube Output (ml) 0 Left Pleural 0 Other: Number of Stools Toilet 1 Result Diagrams: 03/13/19 11:07 03/10/19 04:20 Telemetry: Atrial paced ventricular sensed rhythm - Physical Exam Ears, Nose, Mouth, Throat: moist mucous membranes Cardiovascular: regular rate and rhythm Respiratory: clear to auscultate bilat, other (chest tube still has air leak) Gastrointestinal: normoactive bowel sounds ICD10 Worksheet Patient Problems: Problems Problem Status Onset Fatigue Acute Abnormal EKG Acute
[2019-03-15] MEDS ORDERED: MIDAZOLAM 2 MG/2 ML VIAL IVP ONE (18:08)
[2019-03-15] MEDS ORDERED: fentaNYL 100 MCG/2 ML INJ IVP ONE (18:08)
[2019-03-15] MEDS: ROSUVASTATIN CALCIUM 10 MG TAB PO SCH (20:49)
[2019-03-15] MEDS: ACETAMINOPHEN 500 MG TAB PO SCH (20:49)
[2019-03-15] MEDS: WARFARIN SODIUM 4 MG TAB PO SCH (22:22)
[2019-03-16] MEDS: oxyCODONE IR 5 MG TAB PO PRN ×3 (01:54→22:05)
[2019-03-16 04:47] LABS: INR 1.15 (0.83-1.16); PROTIME(PATIENT) 14.2 SEC (12.0-15.0)
[2019-03-16] MEDS: OXYCODONE/APAP 5/325 TAB PO PRN ×3 (07:56→18:10)
[2019-03-16] MEDS: ASPIRIN 81 MG CHEWABLE TAB PO SCH (07:57)
[2019-03-16] MEDS: ENOXAPARIN 40 MG/0.4 ML SYR SC SCH (07:57)
[2019-03-16] MEDS: DOCUSATE SODIUM 100 MG CAP PO SCH (07:57)
[2019-03-16] MEDS: THYROID 60 MG TAB PO SCH (08:00)
[2019-03-16] MEDS: FLUORIDE DT SCH ×2 (08:00→21:05)
--- NOTE | 2019-03-16 09:51 | SOAPPROG ---
SOAP Progress Note Assessment/Plan: Assessment/plan: 83-year-old male status post pacemaker placement with iatrogenic pneumothorax status post chest tube placement, 03/09/19. S/p larger chest tube insertion yesterday. Chest xray today shows slight improvement in pneumothorax. No air leak today. Will plan to take chest tube off suction tomorrow and hopefully pull tube over the weekend. S: Biggest complaint is pain from chest tube. O: Alert Afebrile RRR Chest: CTAB, no increased WOB, chest tube in place, no air leak. Minimal drainage. Abdomen: soft, nontender 03/16/19 09:49 Objective: Vital Signs Temp Pulse Resp BP Pulse Ox 36.7 C 92 18 135/87 H 93 03/16/19 07:15 03/16/19 07:15 03/16/19 07:15 03/16/19 07:15 03/16/19 07:15 Laboratory Results 03/13/19 11:07 03/10/19 04:20 03/15/19 03/16/19 03/17/19 05:59 05:59 05:59 Intake Total 2049 680 Output Total 745 Balance 2049 - PT 14.2 SEC (12.0-15.0) 03/16/19 03:38 INR 1.15 (0.83-1.16) 03/16/19 03:38 ICD10 Worksheet Patient Problems: Problems Problem Status Onset Abnormal EKG Acute Fatigue Acute
--- NOTE | 2019-03-16 18:16 | PDCARPN ---
Cardiology Progress Note Assessment/Plan: Assessment: 1. S/p permanent pacemaker for indication of SSS and sinus arrest and pauses with associated lightheadedness and syncope. The procedure was complicated by a large tension pneumothorax requiring urgent chest tube placement. A larger tube was placed yesterday and is currently to suction. The patient is comfortable. The patient's wayne were removed and the wound redressed. Plan: As above. Chest wall to air tomorrow is the plan. 03/16/19 17:53 Reviewed/Discussed With: family, multidisciplinary team Time Spent with Patient: greater than 25 minutes Time Spent with Patient: Greater than 25 minutes spent on this patients care, greater than 50% of time spent counseling, educating, and coordinating care regarding the above mentioned plan. Objective: Vital Signs (8 Hrs) Temp Pulse Resp BP Pulse Ox 03/16/19 15:30 36.7 C 79 20 134/84 H 97 03/16/19 12:00 36.7 C 80 18 164/88 H 96 Intake/Output (24 Hrs) 03/15/19 03/16/19 03/17/19 05:59 05:59 05:59 Intake Total 2049 680 400 Output Total 745 301 Balance 2049 - 99 Intake: Oral (ml) 0 580 400 IV Intake (ml) 100 Output: Urine (ml) 725 300 Toilet 300 Urinal 725 Chest Tube Output (ml) 20 1 Location 1 Left 20 1 Emesis (ml) 0 Other: Number of Voids Toilet 3 Number of Stools Toilet 1 Result Diagrams: 03/13/19 11:07 03/10/19 04:20 EKG: AV sequential paced rhythm Telemetry: as above. - Physical Exam Constitutional: no apparent distress Eyes: anicteric sclera Ears, Nose, Mouth, Throat: moist mucous membranes Cardiovascular: regular rate and rhythm, no rubs, no gallops Gastrointestinal: normoactive bowel sounds, other (chest tube in left chest) Neurologic: AAOx3, CN II-XII grossly intact Psychiatric: cooperative, interactive ICD10 Worksheet Patient Problems: Problems Problem Status Onset Fatigue Acute Abnormal EKG Acute
[2019-03-16] MEDS: WARFARIN SODIUM 4 MG TAB PO SCH (21:05)
[2019-03-16] MEDS: ACETAMINOPHEN 500 MG TAB PO SCH (21:05)
[2019-03-16] MEDS: ROSUVASTATIN CALCIUM 10 MG TAB PO SCH (21:05)
--- NOTE | 2019-03-16 23:17 | GOP ---
[f rep st] OPERATIVE REPORT DATE OF OPERATION: 03/15/2019 SURGEON: Marito Zamora MD PREOPERATIVE DIAGNOSIS: Recurrent left pneumothorax. POSTOPERATIVE DIAGNOSIS: Recurrent left pneumothorax. PROCEDURE PERFORMED: Left tube thoracostomy with intravenous sedation. FINDINGS: Patient was found to have tension pneumothorax with full expansion of the lung after placement of a chest tube. DESCRIPTION OF PROCEDURE: The patient was taken to the special procedure room, placed in the right lateral decubitus position, prepped and draped in the usual sterile fashion. The area was infiltrated with 0.5% Marcaine. A short incision was made in the midaxillary line over the sixth intercostal space. Dissection was carried up over the rib and using further infiltration and IV sedation the chest was then entered, releasing a tension pneumothorax. A #24- Bulgarian chest tube was passed without difficulties and secured to the exit site with 2-0 silk sutures and connected to a Pleur-evac drainage system. X-ray was done revealing full expansion of the chest. The wound was dressed. He tolerated the procedure well, was taken to the recovery room in good condition. There were no complications. /[id number]/MODL MTDD
[2019-03-17 04:52] LABS: INR 1.2 (0.83-1.16); PROTIME(PATIENT) 14.7 SEC (12.0-15.0)
[2019-03-17] MEDS: oxyCODONE IR 5 MG TAB PO PRN ×4 (07:21→21:59)
[2019-03-17] MEDS: ASPIRIN 81 MG CHEWABLE TAB PO SCH (08:16)
[2019-03-17] MEDS: DOCUSATE SODIUM 100 MG CAP PO SCH (08:16)
[2019-03-17] MEDS: ENOXAPARIN 40 MG/0.4 ML SYR SC SCH (08:16)
[2019-03-17] MEDS: FLUORIDE DT SCH ×2 (08:17→23:06)
[2019-03-17] MEDS: THYROID 60 MG TAB PO SCH (11:17)
--- NOTE | 2019-03-17 14:25 | SOAPPROG ---
SOAP Progress Note Assessment/Plan: Assessment/plan: 83-year-old male status post pacemaker placement with iatrogenic pneumothorax status post chest tube placement, 03/09/19. S/p larger chest tube insertion. Chest xray today shows stable pneumothorax. No air leak today. Place chest tube to water seal today. Hopefully pull tube tomorrow. Repeat xrays ordered for this afternoon and tomorrow morning. S: Biggest complaint is pain from chest tube. O: Alert Afebrile RRR Chest: CTAB, no increased WOB, chest tube in place, no air leak. Minimal drainage. Abdomen: soft, nontender 03/17/19 14:23 Objective: Vital Signs Temp Pulse Resp BP Pulse Ox 36.6 C 77 18 137/91 H 98 03/17/19 11:33 03/17/19 11:33 03/17/19 11:33 03/17/19 11:33 03/17/19 11:33 Laboratory Results 03/13/19 11:07 03/10/19 04:20 03/16/19 03/17/19 03/18/19 05:59 05:59 05:59 Intake Total 680 1350 400 Output Total 745 1121 375 Balance -65 229 25 PT 14.7 SEC (12.0-15.0) 03/17/19 03:31 INR 1.20 (0.83-1.16) H 03/17/19 03:31 ICD10 Worksheet Patient Problems: Problems Problem Status Onset Abnormal EKG Acute Fatigue Acute
--- NOTE | 2019-03-17 16:13 | ASMTCMCOM ---
CM Note CM Note Notes: CM reviewed pts chart. The plan remains the same. Pt will d/c home with [facility] when medically stable. CM to follow. Plan [facility]; PT, RN Date Signed: 03/17/2019 04:12 PM Electronically Signed By:HOLLIS Hutchins
--- NOTE | 2019-03-17 18:14 | PDCARPN ---
Cardiology Progress Note Assessment/Plan: Assessment: 1. S/p permanent pacemaker for indication of SSS and sinus arrest and pauses with associated lightheadedness and syncope. The procedure was complicated by a large tension pneumothorax requiring urgent chest tube placement. A larger tube was placed yesterday and is currently to suction. The patient is comfortable. The patient's wayne were removed and the wound redressed yesterday and the tube is no longer to suction. General surgery is following carefully and is planning to remove the tube once the air leak is no longer present. Plan: As above. Chest wall to air today is the plan. Chest tube out once lung is inflated and without a new accumulation of air. 03/17/19 18:11 Objective: Vital Signs (8 Hrs) Temp Pulse Resp BP Pulse Ox 03/17/19 16:24 36.2 C 81 19 129/79 H 97 03/17/19 14:40 80 96 03/17/19 11:33 36.6 C 77 18 137/91 H 98 Intake/Output (24 Hrs) 03/16/19 03/17/19 03/18/19 05:59 05:59 05:59 Intake Total 680 1350 1250 Output Total 745 1121 600 Balance -65 229 650 Intake: Oral (ml) 580 1350 1250 IV Intake (ml) 100 Output: Urine (ml) 725 1120 550 Toilet 600 Urinal 725 520 550 Chest Tube Output (ml) 20 1 50 Location 1 Left 20 1 50 Emesis (ml) 0 Other: Number of Voids Toilet 3 1 Result Diagrams: 03/13/19 11:07 03/10/19 04:20 - Physical Exam Constitutional: no apparent distress Eyes: anicteric sclera Ears, Nose, Mouth, Throat: moist mucous membranes Cardiovascular: regular rate and rhythm Respiratory: clear to auscultate bilat, inspiratory crackles, No expiratory wheeze, No bronchial breath sounds Neurologic: AAOx3, CN II-XII grossly intact Psychiatric: cooperative, interactive ICD10 Worksheet Patient Problems: Problems Problem Status Onset Fatigue Acute Abnormal EKG Acute
[2019-03-17] MEDS: WARFARIN SODIUM 4 MG TAB PO SCH (21:59)
[2019-03-17] MEDS: ROSUVASTATIN CALCIUM 10 MG TAB PO SCH (21:59)
[2019-03-17] MEDS: ACETAMINOPHEN 500 MG TAB PO SCH (22:00)
[2019-03-18] MEDS: oxyCODONE IR 5 MG TAB PO PRN ×3 (00:49→20:59)
[2019-03-18 04:23] LABS: INR 1.34 (0.83-1.16)
[2019-03-18] MEDS: OXYCODONE/APAP 5/325 TAB PO PRN ×2 (07:13→17:28)
[2019-03-18] MEDS: FLUORIDE DT SCH ×2 (08:52→21:05)
[2019-03-18] MEDS: ASPIRIN 81 MG CHEWABLE TAB PO SCH (08:52)
[2019-03-18] MEDS: DOCUSATE SODIUM 100 MG CAP PO SCH (08:52)
[2019-03-18] MEDS: ENOXAPARIN 40 MG/0.4 ML SYR SC SCH (08:57)
[2019-03-18] MEDS: THYROID 60 MG TAB PO SCH (10:35)
--- NOTE | 2019-03-18 11:42 | PDCARPN ---
Cardiology Progress Note Chief Complaint: pain at tube site when he moves or breaths Assessment/Plan: Assessment: 1. SSS with pauses, s/p dual chamber PM implant. Device interogated on 03/16. Excellent capture thresholds and sensing. Malathi were removed at that time, guaze dressing dry and intact. Will remove at time of d/c. 2. Large tension pneumothorax at time of PM implant. Chest tube now to water seal. Possibly to be removed to surgery today. 3. PAF takes coumadin, INR 1.34, taking lovenox. Plan: If chest tube removed today, possible d/c tomorrow. 03/18/19 11:39 03/18/19 11:46 03/18/19 11:47 Reviewed/Discussed With: other (Dr. Puga) Objective: Vital Signs (8 Hrs) Temp Pulse Resp BP Pulse Ox 03/18/19 11:10 36.6 C 78 12 112/77 96 03/18/19 07:06 36.6 C 76 18 146/81 H 95 Intake/Output (24 Hrs) 03/17/19 03/18/19 03/19/19 05:59 05:59 05:59 Intake Total 1350 1600 Output Total 1121 900 Balance 229 700 Intake: Oral (ml) 1350 1600 IV Intake (ml) 0 Output: Urine (ml) 1120 850 Toilet 600 300 Urinal 520 550 Chest Tube Output (ml) 1 50 Location 1 Left 1 50 Other: Number of Voids Toilet 1 Result Diagrams: 03/13/19 11:07 03/10/19 04:20 - Physical Exam Constitutional: other (Pain with movement) Cardiovascular: regular rate and rhythm Respiratory: no crackles, no wheezes, reduced air movement, other Skin: no edema Psychiatric: cooperative ICD10 Worksheet Patient Problems: Problems Problem Status Onset Fatigue Acute Abnormal EKG Acute
--- NOTE | 2019-03-18 13:11 | SOAPPROG ---
SOAP Progress Note Assessment/Plan: Assessment: COMFORTABLE/ VS STABLE/ AFEBRILE STILL TINY AIRLEAK CXR WELL EXPANDED BS EQUAL/ TUBE SITE OK COR RR Plan:CONTINUE SUCTION 03/10/19 08:57 03/14/19 09:04 no air leak today/ cxr pending/ hopefully can dc suction and then tube if no recurrence 03/18/19 13:11 SOME PAIN FROM THE CHEST TUBE/AFEBRILE/STABLE VITAL SIGNS/ALERT CHEST X-RAY SHOWS GOOD EXPANSION/NO AIR LEAK AND MINIMAL DRAINAGE PLAN LEAVE OFF SUCTION AND PROBABLE CHEST TUBE REMOVAL IN THE A.M./RISKS AND OPTIONS FULLY DISCUSSED Objective: Vital Signs Temp Pulse Resp BP Pulse Ox 36.6 C 78 12 112/77 96 03/18/19 11:10 03/18/19 11:10 03/18/19 11:10 03/18/19 11:10 03/18/19 11:10 Laboratory Results 03/13/19 11:07 03/10/19 04:20 03/17/19 03/18/19 03/19/19 05:59 05:59 05:59 Intake Total 1350 1600 Output Total 1121 900 Balance 229 700 PT 16.0 SEC (12.0-15.0) H 03/18/19 03:20 INR 1.34 (0.83-1.16) H 03/18/19 03:20 ICD10 Worksheet Patient Problems: Problems Problem Status Onset Abnormal EKG Acute Fatigue Acute
[2019-03-18] MEDS ORDERED: POLYETHYLENE GLYCOL 3350 17 GM PKT PO PRN (18:21)
[2019-03-18] MEDS ORDERED: MAGNESIUM HYDROXIDE 30 ML UDCUP PO PRN (18:21)
[2019-03-18] MEDS ORDERED: LACTULOSE 20 GM/30 ML UDCUP PO PRN (18:21)
[2019-03-18] MEDS ORDERED: BISACODYL 10 MG SUPP PR PRN (18:21)
[2019-03-18] MEDS: WARFARIN SODIUM 4 MG TAB PO SCH (20:59)
[2019-03-18] MEDS: ROSUVASTATIN CALCIUM 10 MG TAB PO SCH (20:59)
[2019-03-18] MEDS: SENNOSIDES/DOCUSATE SODIUM TAB PO SCH (20:59)
[2019-03-18] MEDS: ACETAMINOPHEN 500 MG TAB PO SCH (21:05)
[2019-03-18] MEDS ORDERED: KETOROLAC 15 MG/1 ML SDV IVP ONE (23:45)
[2019-03-19] MEDS ORDERED: LIDOCAINE 4%/MENTHOL 1% PATCH TD ONE (00:15)
[2019-03-19] MEDS: OXYCODONE/APAP 5/325 TAB PO PRN (00:42)
[2019-03-19] MEDS ORDERED: LIDOCAINE 2% JELLY 20 ML (UROJECT) UR ONE (02:15)
[2019-03-19] MEDS: oxyCODONE IR 5 MG TAB PO PRN (07:26)
[2019-03-19 09:23] LABS: PLATELET COUNT 125 10^3/uL (150-400)
[2019-03-19 09:33] LABS: INR 1.42 (0.83-1.16); PROTIME(PATIENT) 16.7 SEC (12.0-15.0)
[2019-03-19] MEDS: TAMSULOSIN HCL 0.4 MG CAP PO SCH (10:10)
[2019-03-19] MEDS: ASPIRIN 81 MG CHEWABLE TAB PO SCH (10:11)
[2019-03-19] MEDS: ENOXAPARIN 40 MG/0.4 ML SYR SC SCH (10:11)
[2019-03-19] MEDS: THYROID 60 MG TAB PO SCH (10:11)
[2019-03-19] MEDS: SENNOSIDES/DOCUSATE SODIUM TAB PO SCH ×2 (10:13→21:57)
[2019-03-19] MEDS: DOCUSATE SODIUM 100 MG CAP PO SCH (10:13)
[2019-03-19] MEDS: FLUORIDE DT SCH ×2 (10:34→21:57)
[2019-03-19] MEDS ORDERED: PATCH REMOVAL 1 EA PATCH TD ONE (12:15)
[2019-03-19] MEDS: ACETAMINOPHEN 325 MG TAB PO PRN (13:59)
--- NOTE | 2019-03-19 14:23 | GCON ---
[f rep st] CONSULTATION DATE OF CONSULTATION: 03/09/2019 Patient is an 83-year-old male who was consulted because of a tension pneumothorax on the left after a pacemaker insertion. 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 He now miller s a tension pneumothorax on the left, so I urgently proceeded with pneumo cath placement with release of his tension pneumothorax. PAST MEDICAL HISTORY: Includes a pacemaker, cardiac disease with stents, COPD. REVIEW OF SYSTEMS: Was quickly obtained and was negative. ALLERGIES: Were tramadol and sulfa. PRESENT MEDICATIONS: Listed in the chart. PHYSICAL EXAM: GENERAL: Reveals an alert 83-year-old male who is in some distress. HEENT: Reveals him to be nonicteric, PERRLA without adenopathy. NECK: Supple. CHEST: Reveals decreased breath s ounds on the left and decreased breath sound movement on the right. Exam reveals regular tachycardia and his fresh pacemaker site on the left anterior chest. ABDOMEN: Soft. EXTREMITIES: Reveal full range of motion. Full pulses. NEUROLOGIC: Exam was physiologic. IMPRESSION: Tension left pneumothorax with significant COPD. PLAN: Immediate pneumo cath placement. Risks and options have been fully discussed. /[id number]/MODL
--- NOTE | 2019-03-19 15:30 | PDCARPN ---
Cardiology Progress Note Assessment/Plan: Assessment: 1. SSS with pauses, s/p dual chamber PM implant. Device interogated on 03/16. Excellent capture thresholds and sensing. Malathi were removed at that time, guaze dressing dry and intact. Remove gauze dressing at time of d/c 2. Large tension pneumothorax at time of PM implant. Chest tube removed by Dr. Zamora this morning. 3. PAF takes coumadin, INR 1.4, taking lovenox. Will increase coumadin dose to 5 mg tonight, INR in am. 4. Pain from chest tube. Decreased since removal. Some confusion likely due to pain meds with decreased clearance and poor sleep. Cr increased to 1.4. No further NSAID. Use Tylenol. Patient is ok with this. 5. Urinary retention last night. 1400cc residual. Leroy placed and urology consult placed. Leroy will be left in tonight. Plan: If chest tube removed today, possible d/c tomorrow. 03/18/19 11:39 03/18/19 11:46 03/18/19 11:47 03/19/19 15:26 03/19/19 16:05 Objective: Vital Signs (8 Hrs) Temp Pulse Resp BP Pulse Ox 03/19/19 11:31 36.7 C 75 11 L 94/72 L 94 Intake/Output (24 Hrs) 03/18/19 03/19/19 03/20/19 05:59 05:59 05:59 Intake Total 1600 700 600 Output Total 900 2640 Balance 700 -1940 600 Intake: Oral (ml) 1600 700 600 IV Intake (ml) 0 Output: Urine (ml) 850 2600 Catheter 2250 Toilet 300 Urinal 550 350 Chest Tube Output (ml) 50 40 Location 1 Left 50 40 Other: Weight 80.2 kg Intake Quantity Yes Sufficient Number of Voids Toilet 1 Bladder Scan Volume (ml) Toilet 775 Urinal 999 Result Diagrams: 03/19/19 08:52 03/19/19 08:52 ICD10 Worksheet Patient Problems: Problems Problem Status Onset Abnormal EKG Acute Fatigue Acute
[2019-03-19] MEDS ORDERED: WARFARIN SODIUM 2 MG TAB PO ONE (16:19)
--- NOTE | 2019-03-19 19:34 | SOAPPROG ---
SOAP Progress Note Assessment/Plan: Assessment: COMFORTABLE/ VS STABLE/ AFEBRILE STILL TINY AIRLEAK CXR WELL EXPANDED BS EQUAL/ TUBE SITE OK COR RR Plan:CONTINUE SUCTION 03/10/19 08:57 03/14/19 09:04 no air leak today/ cxr pending/ hopefully can dc suction and then tube if no recurrence 03/18/19 13:11 SOME PAIN FROM THE CHEST TUBE/AFEBRILE/STABLE VITAL SIGNS/ALERT CHEST X-RAY SHOWS GOOD EXPANSION/NO AIR LEAK AND MINIMAL DRAINAGE PLAN LEAVE OFF SUCTION AND PROBABLE CHEST TUBE REMOVAL IN THE A.M./RISKS AND OPTIONS FULLY DISCUSSED 03/19/19 19:33 CHEST X-RAY WELL EXPANDED WITH NO RESPIRATORY DIFFICULTIES THIS EVENING MAJOR PROBLEM NOW IS URINARY RETENTION REQUIRING CAAL CATHETER WHICH APPEARS TO BE A CHRONIC ISSUE WITH HIM WE HAVE RESTARTED ON FLOMAX/HOPEFULLY HOME IN THE A.M. Objective: Vital Signs Temp Pulse Resp BP Pulse Ox 36.6 C 82 20 126/71 H 96 03/19/19 16:00 03/19/19 16:00 03/19/19 16:00 03/19/19 16:00 03/19/19 16:00 Laboratory Results 03/19/19 08:52 03/19/19 08:52 03/18/19 03/19/19 03/20/19 05:59 05:59 05:59 Intake Total 1600 700 600 Output Total 900 2640 600 Balance 700 -1940 0 PT 16.7 SEC (12.0-15.0) H 03/19/19 08:52 INR 1.42 (0.83-1.16) H 03/19/19 08:52 ICD10 Worksheet Patient Problems: Problems Problem Status Onset Abnormal EKG Acute Fatigue Acute
[2019-03-19] MEDS: ACETAMINOPHEN 500 MG TAB PO SCH (21:56)
[2019-03-19] MEDS: ROSUVASTATIN CALCIUM 10 MG TAB PO SCH (21:57)
[2019-03-19] MEDS: WARFARIN SODIUM 4 MG TAB PO SCH (21:57)
[2019-03-20 04:44] LABS: INR 1.64 (0.83-1.16); PROTIME(PATIENT) 18.7 SEC (12.0-15.0)
[2019-03-20] MEDS: ACETAMINOPHEN 325 MG TAB PO PRN ×2 (06:27→14:47)
--- NOTE | 2019-03-20 09:58 | SOAPPROG ---
SOAP Progress Note Assessment/Plan: Assessment/plan: 83-year-old male status post pacemaker placement with iatrogenic pneumothorax status post chest tube placement, 03/09/19. S/p larger chest tube insertion. Tube was pulled over the weekend. Repeat chest xray shows minimal residual pneumo. Urinary retention. S/p rabago cath insertion yesterday. Flomax started. Will try void trial later today. New onset fever and confusion. Hospitalist consult appreciated. Temp down to 36.8 after Tylenol. Na low at 133. Normal saline started. CBC pending. Dispo: pending. S: Confused. Tells me he is in [place]. O: Alert Febrile at 38.5 this am RRR Chest: CTAB, no increased WOB, chest tube sites well dressed. Abdomen: soft, nontender 03/20/19 09:55 03/20/19 09:58 Objective: Vital Signs Temp Pulse Resp BP Pulse Ox 36.8 C 80 20 126/76 H 96 03/20/19 08:00 03/20/19 08:00 03/20/19 08:00 03/20/19 08:00 03/20/19 08:00 Laboratory Results 03/19/19 08:52 03/20/19 03:00 03/19/19 03/20/19 03/21/19 05:59 05:59 05:59 Intake Total 700 1050 Output Total 2640 1750 Balance -1940 -700 PT 18.7 SEC (12.0-15.0) H 03/20/19 03:00 INR 1.64 (0.83-1.16) H 03/20/19 03:00 ICD10 Worksheet Patient Problems: Problems Problem Status Onset Abnormal EKG Acute Fatigue Acute
--- NOTE | 2019-03-20 10:16 | ASMTCMCOM ---
CM Note CM Note Notes: CM discussed case w/ FELICITY Hassan. Pt is confused and has a fever today. Surgery is consulting hospitalist. CM sent updates to [facility]. CM to follow. Plan: [facility]; PT, OT, RN Date Signed: 03/20/2019 10:15 AM Electronically Signed By:HOLLIS Hutchins
[2019-03-20] MEDS: FLUORIDE DT SCH ×2 (10:31→21:44)
[2019-03-20 10:34] LABS: PLATELET COUNT 130 10^3/uL (150-400)
[2019-03-20] MEDS: DOCUSATE SODIUM 100 MG CAP PO SCH (10:34)
[2019-03-20] MEDS: THYROID 60 MG TAB PO SCH (10:35)
[2019-03-20] MEDS: ASPIRIN 81 MG CHEWABLE TAB PO SCH (10:36)
[2019-03-20] MEDS: TAMSULOSIN HCL 0.4 MG CAP PO SCH (10:36)
[2019-03-20] MEDS: SENNOSIDES/DOCUSATE SODIUM TAB PO SCH ×2 (10:36→21:44)
[2019-03-20] MEDS: NS 1,000 ML IV SCH ×2 (10:37→22:26)
[2019-03-20] MEDS: ENOXAPARIN 40 MG/0.4 ML SYR SC SCH (10:37)
--- NOTE | 2019-03-20 14:51 | ASMTLACE ---
LACE Length of stay for Answers: 7-13 days current admission Acuity / Level of Answers: Yes Care: Did the patient have an inpatient admission? Comorbidities - select Answers: Chronic pulmonary disease all that apply Opioid dependence / Chronic pain Previous myocardial infarction Other Notes: AFib # of Emergency department Answers: 1-2 visits in the last 6 months Score: 17 Date Signed: 03/20/2019 02:50 PM Electronically Signed By:Kelsey Verdin
--- NOTE | 2019-03-20 15:12 | PDCARPN ---
Cardiology Progress Note Chief Complaint: Patient reports he would like to go home. Assessment/Plan: Assessment: 83-year-old male with history of abdominal aortic aneurysm (repaired 12/09/[address] Aponte), persistent atrial fibrillation (on warfarin), TAVR, coronary artery disease, COPD, TIA, and sleep apnea. Noted on LINQ monitor have sick sinus syndrome with sinus resting pauses with associated lightheadedness and syncope. Ppm implantation 03/09/2019, complication of iatrogenic. tension pneumo, requiring chest tube. Multiple days with chest tube in, with removal . Chest x-ray done on 03/19/2019 after chest tube removal showing minimal apical pneumothorax persistent. 03/20/2019: Patient with mild confusion, thinking he was in going to send today. Denies of any chest pain or pressure. Pacemaker incision site without signs of infection. Chest tube insertion site, also without signs of infection. Patient noted to have mildly elevated WBC of 11.5. INR noted to be 1.64, mild hyponatremic with sodium at 133. Patient with fever this morning, T- max of 38.5 degrees. Improvement with Tylenol. Patient continues to have fully , urology consultation not done as of this time. Assessment: 1. SSS with pauses, s/p dual chamber PM implant. Device interogated on 03/16. Excellent capture thresholds and sensing. Eliot removed yesterday. Clean gauze applied. Incision site with no redness, swelling, drainage or ecchymosis. Will schedule patient for a followup device check upon discharge. 2. Large tension pneumothorax at time of PPM implant. Chest tube removed by Dr. Zamora on 03/19. Chest 2 dressing clean dry and intact with no redness, swelling, or drainage. Chest x-ray noting minimal apical pneumo. Plan on repeating chest x-ray 3. Paroxysmal atrial fibrillation: Restarted on warfarin. INR today 1.64., taking lovenox. Continue on monitoring INRs on a daily basis, when a goal, DC bridge of Lovenox. 4. Pain from chest tube. Decreased since removal. Has not use narcotics in greater than 24 hr. Continues time. 5. Fever with mild confusion: Temp of 38.5 degrees this morning, relieved with Tylenol. Mildly elevated white blood cell count. Blood cultures in UA ordered. Hospitalistr consult done, have spoken to Dr. Rodriguez, with recommendation no antibiotics unless 2nd fever develops. DC Leroy. His confusion is probably due to prolonged hospitalization, age, and narcotics. Decreased narcotics dosage. Encourage Tylenol for pain management. 6. Urinary retention: Leroy remains in, have spoken to Dr Krishna, urology, who recommended starting patient on Flomax, DC Leroy, cut narcotics back. It unable to void her continue urine tension, catheters to be left in, and see Urology at an outpatient. Ordered DC of Lreoy, bladder scan in 6 hr, repeat catheterization in 8 hr, if urine volume greater than a 1000 mL, lead catheter in. 7. Hypothyroidism: Resumed on home dose of thyroid. 8. Hyperlipidemia: Resumed on home dose of rosuvastatin. 9. Peripheral vascular disease: Past history of AAA repair. Resume on home anti-platelet therapy, statin therapy as mentioned above. 11. DVT prophylaxis: Warfarin and Lovenox. 03/20/19 15:11 Subjective: He reports no chest pressure or pain. Reports mild SOB. Denies of any orthopnea, PND, palpitations, lightheadedness, near-syncope or syncopal events. Reviewed/Discussed With: hospitalist (Dr Rodriguez), other (Dr Ramos and Dr Krishna) Objective: Vital Signs (8 Hrs) Temp Pulse Resp BP Pulse Ox 03/20/19 11:10 36.7 C 81 15 125/72 H 96 03/20/19 08:00 36.8 C 80 20 126/76 H 96 Intake/Output (24 Hrs) 03/19/19 03/20/19 03/21/19 05:59 05:59 05:59 Intake Total 700 1050 Output Total 2640 1750 Balance -1940 -700 Intake: Oral (ml) 700 1050 Output: Urine (ml) 2600 1750 Catheter 2250 1750 Urinal 350 Chest Tube Output (ml) 40 Location 1 Left 40 Other: Weight 80.2 kg 79.7 kg Intake Quantity Yes Sufficient Number of Voids Catheter 1 Number of Stools Bedside Commode 3 1 Bladder Scan Volume (ml) Toilet 775 Urinal 999 Result Diagrams: 03/20/19 10:30 03/20/19 03:00 - Physical Exam Constitutional: WDWN, no apparent distress Ears, Nose, Mouth, Throat: moist mucous membranes Cardiovascular: systolic murmur (2/6 upper chest), irregularly irregular, pulses symmetric bilat, No jugular vein distention, No carotid bruit Peripheral Pulses: 1+: dorsalis-pedis (R), dorsalis-pedis (L), 2+: carotid (R), carotid (L) Respiratory: other (Diminished in left base, no rhonchi, rales, or wheezing noted. No accessary muscle use, no intercostal muscle retraction noted.) Gastrointestinal: normoactive bowel sounds, no tenderness, no masses Skin: warm, no edema, other (Pacemaker incision clean dry and intact with no redness swelling drainage. Chest tube incision dressing clean dry and intact with no redness swelling or drainage.) Neurologic: AAOx3 Psychiatric: cooperative, interactive, following commands ICD10 Worksheet Patient Problems: Problems Problem Status Onset Fatigue Acute Abnormal EKG Acute
[2019-03-20] MEDS ORDERED: oxyCODONE IR 5 MG TAB PO PRN (16:18)
[2019-03-20] MEDS: ACETAMINOPHEN 500 MG TAB PO SCH (19:51)
[2019-03-20] MEDS: ROSUVASTATIN CALCIUM 10 MG TAB PO SCH (19:51)
[2019-03-20] MEDS: WARFARIN SODIUM 4 MG TAB PO SCH (19:51)
--- NOTE | 2019-03-21 03:42 | GCON ---
[f rep st] CONSULTATION DATE OF CONSULTATION: 03/20/2019 HISTORY OF PRESENT ILLNESS: The patient is an 83-year-old gentleman who was hospitalized about 10 da ys ago for elective pacemaker placement due to sinus bradycardia. That placement was performed on was complicated by iatrogenic pneumothorax requiring chest tube. Chest tube was removed on . I am asked to see the patient for confusion and then this morning fever. In speaking with t he patient's he has been confused probably over the last couple of days, perhaps more confused y esterday. He had been receiving some narcotics, but it has been a couple of days. He does have a hi story of postoperative delirium following a cervical spine surgery a couple of years ago, but he also underwent a TAVR recently without any postoperative confusion. When I speak with the patient, he had a Leroy catheter that was removed this morning. He is not havi ng any urinary symptoms. He had some abdominal pain this morning that was relieved with a cramp. He does not have a cough. He does not have shortness of breath. He does not have sputum. He does not have any painful areas on his skin. On examining his pacemaker and chest tube sites they are clean, dry, and intact, without erythema, warmth, or fluctuance. He has trace lower extremity edema that i s not bothering him at this point in time. He does not have URI type symptoms. GI pathogen panel wa s sent, is negative for infection. REVIEW OF SYSTEMS: Complete 10-point review of systems conducted and negative except as noted in the HPI. PAST MEDICAL HISTORY: 1. Aortic stenosis status post TAVR. 2. History of cervical spine surgery. 3. Postoperative delirium. 4. CAD with anterior PR with CABG in 2008, TIA, carotid stenosis with carotid endarterectomy in 1997 . 5. AAA status post endovascular repair in 2012. 6. PE x2 after TAVR. 7. Atrial fibrillation/flutter. 8. History of upper gastrointestinal bleed secondary to duodenal ulcer. 9. Hypertension. 10. Hyperlipidemia. 11. Chronic exertional hypoxia requiring 2 L. SOCIAL HISTORY: Former smoker. No alcohol. Lives with his in [place]. He is his retired cargo worker. FAMILY HISTORY: Parents . PHYSICAL EXAMINATION: VITAL SIGNS: Temp 36.7, it was 38.5 this morning, blood pressure 125/72, puls e 81, breathing 15 times a minute, 96% on 2 L. GENERAL: No acute distress. HEENT: Sclerae anicter ic. Oropharynx clear. Mucous membranes moist. NECK: Supple without lymphadenopathy or JVD. LUNGS : Clear to auscultation bilaterally. HEART: S1, S2 without murmur. His pacer site is clean, dry, and intact. His chest tube site is clean, dry, intact. ABDOMEN: Soft, nontender, nondistended. LO WER EXTREMITIES: No edema. Calves nontender. SKIN: Without rash. NEUROLOGIC: Exam is nonfocal. The patient is alert and conversant, but he is confused. I speak with his at great length in f ront of him about him and he does not participate. He has no focal neurologic deficits. LABS: White count is 12, up from 9 the day prior, hematocrit 39.4, platelets are 130,000 which is ch ronically low. INR is 1.64. Sodium 133, potassium 5, chloride 100, bicarb 27, BUN 30, creatinine 1. 3. This is down from the day prior. Urinalysis at this time shows 15-25 red cells, 5-10 white cells . A GI pathogen panel was negative. Yesterday's chest x-ray shows residual pneumothorax. I discussed the case with Maciej Diamond. ASSESSMENT AND PLAN: This is an 83-year-old gentleman with fever and confusion following a prolonged hospital course with pneumothorax and pacer placement. 1. Encephalopathy. This is toxic metabolic I think probably from pain medicines, being tethered in bed plus-minus pain. It sounds like he has a history of this. At this point in time, I would contin ue to minimize pain medications. I have made some slight adjustments. Provide supportive care. 2. Fever. This is of uncertain cause. I think I will perform a chest x-ray for completeness sake. He has a relatively clear lung exam. I agree with blood cultures and they have been drawn. His pac er and chest tube sites look good. We will follow. Will hold antibiotics at this time. 3. Pyuria secondary to Leroy which has been discontinued. It is not consistent with infection. 4. Lower extremity edema. This is likely chronic and the patient is not in heart failure. We will follow. 5. Thrombocytopenia, mild. Will follow. 6. Prophylaxis. He is therapeutically anticoagulated with warfarin, although his INR is not yet the rapeutic. He is also on prophylactic dose of low-molecular heparin. Thank you for this consultation. [facility] will follow with you. /[id number]/MODL
[2019-03-21 04:10] LABS: PLATELET COUNT 115 10^3/uL (150-400)
[2019-03-21 04:22] LABS: INR 2.33 (0.83-1.16); PROTIME(PATIENT) 24.4 SEC (12.0-15.0)
[2019-03-21] MEDS: TAMSULOSIN HCL 0.4 MG CAP PO SCH (08:58)
[2019-03-21] MEDS: ASPIRIN 81 MG CHEWABLE TAB PO SCH (08:58)
[2019-03-21] MEDS: DOCUSATE SODIUM 100 MG CAP PO SCH (08:59)
[2019-03-21] MEDS: SENNOSIDES/DOCUSATE SODIUM TAB PO SCH ×2 (09:00→21:33)
[2019-03-21] MEDS: THYROID 60 MG TAB PO SCH (09:01)
[2019-03-21] MEDS: FLUORIDE DT SCH ×2 (09:01→21:34)
[2019-03-21] MEDS: ENOXAPARIN 40 MG/0.4 ML SYR SC SCH (09:01)
--- NOTE | 2019-03-21 10:06 | HOSPPROG ---
Hospitalist Progress Note Assessment/Plan: 83M s/p ppm placement, complicated by ptx requiring CT which has been removed. # fever - no clear cause, infectious w/u so far negative - he is high risk given his age and remicaide infusions - would monitor blood cultures another day prior to dc # chronic immunosuppression on remicaide for UC # diarrhea - GI PCR negative # pyuria - expected as he had a rabago, nothing so far in UCx; without clear symptoms, would not treat # leukocytosis - resolved Subjective: nothing acute overnight; diarrhea better, but no BM Objective: Vital Signs Temp Pulse Resp BP Pulse Ox 36.8 C 76 18 122/63 H 95 03/21/19 08:00 03/21/19 08:00 03/21/19 08:00 03/21/19 08:00 03/21/19 08:00 Microbiology 03/20/19 12:00 Gastrointestinal Tract Panel (PCR) - Final Stool No Organism Detected By Pcr Laboratory Results 03/21/19 03:32 03/21/19 03:32 03/20/19 03/21/19 03/22/19 05:59 05:59 05:59 Intake Total 1050 1220 Output Total 1750 1050 Balance -700 170 PT 24.4 SEC (12.0-15.0) H 03/21/19 03:32 INR 2.33 (0.83-1.16) H 03/21/19 03:32 chart reviewed CXR personally reviewed - Physical Exam Constitutional: no apparent distress, appears nourished Ears, Nose, Mouth, Throat: moist mucous membranes, hearing normal, No oral thrush, No poor dentition, No hard of hearing Cardiovascular: regular rate and rhythym, no murmur, rub, or gallop Respiratory: no respiratory distress, no rales or rhonchi, clear to auscultation Gastrointestinal: soft, non-tender abdomen, no palpable masses, No guarding, No rebound, No distension Genitourinary: rabago in urethra Skin: warm, No rash Musculoskeletal: full muscle strength, no muscle tenderness Neurologic: AAOx3 Psychiatric: not anxious ICD10 Worksheet Patient Problems: Problems Problem Status Onset Fatigue Acute Abnormal EKG Acute
[2019-03-21] MEDS: NS 1,000 ML IV SCH (11:22)
--- NOTE | 2019-03-21 12:30 | ASMTCMCOM ---
CM Note CM Note Notes: CM spoke to FELICITY Wing and Dr. Ayala about this case. Pts is worried that pt will be unable to do the stairs in their home. is requesting that pt gets into [facility]. CM spoke to Olga, case manager specialist at [facility] (P#: [phone]). CM sent over referral on [employer]. If pt does not get into the Swing Bed. [facility] can follow up. CM to follow. Plan: [facility] vs Swing Bed Date Signed: 03/21/2019 12:29 PM Electronically Signed By:HOLLIS Hutchins
--- NOTE | 2019-03-21 14:45 | PDCARPN ---
Cardiology Progress Note Chief Complaint: Patient reports he would like to go home. Assessment/Plan: Assessment: 83-year-old male with history of abdominal aortic aneurysm (repaired 12/09/[address] Aponte), persistent atrial fibrillation (on warfarin), TAVR, coronary artery disease, COPD, TIA, and sleep apnea. Noted on LINQ monitor have sick sinus syndrome with sinus resting pauses with associated lightheadedness and syncope. Ppm implantation 03/09/2019, complication of iatrogenic. tension pneumo, requiring chest tube. Multiple days with chest tube in, with removal . Chest x-ray done on 03/19/2019 after chest tube removal showing minimal apical pneumothorax persistent. 03/21/2019: Patient wake and alert today, reporting no pain at pacemaker insertion site. Does continue to have mild pain at left lateral chest, chest tube insertion site. Vital signs have been stable, no significant temperature since yesterday morning at 6:00 a.m.. (T max 38.5 degree C). Laboratory studies showing white blood cell count back to within normal limits at 7.64. Blood culture still pending. Maintaining sinus rhythm with occasional PVC. INR therapeutic at 2.33 today. Creatinine 1.3. Chest x-ray last night showing nearly completely resolved tiny left apical pneumothorax. Improved variation in basilar atelectasis. No interstitial edema or pleural effusion. Assessment: 1. SSS with pauses, s/p dual chamber PM implant. Device interogated on 03/16. Excellent capture thresholds and sensing. Malathi removed yesterday. Clean gauze applied. Incision site with no redness, swelling, drainage or ecchymosis. Will schedule patient for a followup device check upon discharge. 2. Large tension pneumothorax at time of PPM implant. Chest tube removed by Dr. Zamora on 03/19. Chest 2 dressing clean dry and intact with no redness, swelling, or drainage. Chest x-ray yesterday showing pneumothorax has almost completely resolved. 3. Paroxysmal atrial fibrillation: Rate controlled, Restarted on warfarin. INR therapeutic, DC Lovenox. 4. Pain from chest tube. Decreased since removal. Has not use narcotics in greater than 48 hr. Continues time. 5. Fever of unknown cause: No fevers overnight. Blood cultures are pending. Leukocytosis has resolved. Recommendation by hospitalist services (appreciated consult) to keep patient overnight. 6. Urinary retention: Rabago remains in, have spoken to Dr Krishna, urology, who recommended starting patient on Flomax, DC Rabago, cut narcotics back. Catheter was discontinued yesterday, unfortunately unable to void over 8 hr, requiring reinsertion of catheter. Plan will be to lead catheter in, follow-up with urology in outpatient setting. 7. Pyuria: expected due to him having a rabago, urine culture negative. No clear symptoms. Will not treat at this time. 8. Hypothyroidism: Resumed on home dose of thyroid. 9. Hyperlipidemia: Resumed on home dose of rosuvastatin. 10. Peripheral vascular disease: Past history of AAA repair. Resume on home anti-platelet therapy, statin therapy as mentioned above. 11. DVT prophylaxis: Warfarin 03/21/19 15:12 Subjective: Denies of any chest pressure or pain. Reports no significant shortness of breath. Denies of any palpitations, reports no lightheadedness, near-syncope or syncopal events. Reviewed/Discussed With: hospitalist (Dr Ayala and Dr Zamora), multidisciplinary team (Discharge plan), other (Dr Ramos) Objective: Vital Signs (8 Hrs) Temp Pulse Resp BP Pulse Ox 03/21/19 11:29 36.7 C 69 18 92/60 L 94 03/21/19 08:00 36.8 C 76 18 122/63 H 95 Intake/Output (24 Hrs) 03/20/19 03/21/19 03/22/19 05:59 05:59 05:59 Intake Total 1050 1220 Output Total 1750 1050 Balance -700 170 Intake: Oral (ml) 1050 100 IV Infused (ml) 1120 Ns 1,000 ml @ 100 mls/hr 1120 IV CONT ELIAN Rx#: [id number] Output: Urine (ml) 1750 1050 Catheter 1750 950 Urinal 100 Other: Weight 79.7 kg Output Comment Incontinence rabago placed Number of Voids Catheter 1 Incontinence 1 Urinal 1 Number of Stools Bedside Commode 3 1 Bladder Scan Volume (ml) Incontinence 836 Post Void Residual Scan Volume (ml) Urinal 102 Result Diagrams: 03/21/19 03:32 03/21/19 03:32 - Physical Exam Constitutional: no apparent distress, other (Elderly male) Ears, Nose, Mouth, Throat: moist mucous membranes Cardiovascular: regular rate and rhythm, systolic murmur (2/6 left sternal border), pulses symmetric bilat, No jugular vein distention, No carotid bruit Peripheral Pulses: 1+: dorsalis-pedis (R), dorsalis-pedis (L), 2+: carotid (R), carotid (L) Respiratory: clear to auscultate bilat, no crackles, no wheezes Gastrointestinal: normoactive bowel sounds Skin: warm, No no edema (+1 peripheral edema bilateral lower extremity) Neurologic: AAOx3 Psychiatric: cooperative, interactive, following commands ICD10 Worksheet Patient Problems: Problems Problem Status Onset Abnormal EKG Acute Fatigue Acute
[2019-03-21] MEDS: ACETAMINOPHEN 500 MG TAB PO SCH (21:32)
[2019-03-21] MEDS: WARFARIN SODIUM 4 MG TAB PO SCH (21:32)
[2019-03-21] MEDS: ROSUVASTATIN CALCIUM 10 MG TAB PO SCH (21:33)
[2019-03-22 04:29] LABS: PLATELET COUNT 124 10^3/uL (150-400)
[2019-03-22 04:57] LABS: INR 2.38 (0.83-1.16); PROTIME(PATIENT) 24.8 SEC (12.0-15.0)
[2019-03-22] MEDS: SENNOSIDES/DOCUSATE SODIUM TAB PO SCH (08:00)
[2019-03-22] MEDS: TAMSULOSIN HCL 0.4 MG CAP PO SCH (08:00)
[2019-03-22] MEDS: FLUORIDE DT SCH (08:00)
[2019-03-22] MEDS: ASPIRIN 81 MG CHEWABLE TAB PO SCH (08:00)
[2019-03-22] MEDS: DOCUSATE SODIUM 100 MG CAP PO SCH (08:00)
[2019-03-22] MEDS ORDERED: THYROID 60 MG TAB PO SCH (09:00)
[2019-03-22 11:12] VITALS: BP 129/62
--- NOTE | 2019-03-22 11:28 | HOSPPROG ---
Hospitalist Progress Note Assessment/Plan: The patient is a 83-year-old male with PMH sick sinus syndrome who was admitted for near syncope secondary to sick sinus syndrome to undergo pacemaker placement. He subsequently had pneumothorax in later had a fever, for which Internal Medicine was consulted. ASSESSMENT/PLAN: Fever, resolved Chronic immunosuppression, on Remicade for ulcerative colitis Diarrhea Pyuria, catheter colonization Leukocytosis, resolved Sick sinus syndrome, status post pacemaker placement Left-sided pneumothorax, improved Mild left-sided pleuritic chest pain, secondary to pneumothorax Chronic urinary retention, 2/2 to BPH but also may have been from narcotic Opiate AE - delirium, urinary retention -Avoid opiates in the future. Recommend pt take acetaminophen or naproxen prn pain. Explained that some minor pain is to be expected in his chest. -Final BCx pending, but prelim negative. FU final result in outpt setting. -Continue Leroy Cath - pt has Urology appt on 03/30 in [place]. -Plan to FU w/ Gen Surg in 2 weeks, needs CXR prior to visit (to be set up by their office). -discussed case with Cardiology-agree with discharge today. SUBJECTIVE: Today patient felt well. Complained of some left-sided mild to moderate chest pain when he takes in a deep breath. OBJECTIVE: Physical Exam: General: The patient is an elderly male who is alert and in no acute distress. HEENT: normocephalic, extraocular movements intact, conjunctivae clear. Mucous membranes moist. Neck: trachea midline, no visible masses. CV: +S1/S2, RRR, no MRG. Resp: unlabored, CTAB no RRW. Abd: soft and nondistended. Musculoskeletal: Normal muscle tone/bulk. Neuro: cranial nerves II - XII grossly intact. Intact gross motor and sensory function. Psych: Appropriate mood and appropriate affect. Skin: No pallor. No petechiae. No rash around area of pacemaker. Dressing over left upper chest CDI. Heme/lymph: No peripheral edema at bilateral ankles. Labs/Imaging/Other Tests: Personally reviewed/interpreted. Objective: Vital Signs Temp Pulse Resp BP Pulse Ox 36.6 C 66 20 129/62 H 95 03/22/19 11:11 03/22/19 11:11 03/22/19 11:11 03/22/19 11:11 05/01/19 11:11 Microbiology 03/20/19 15:30 Urine Culture - Final Urine,Clean Catch Laboratory Results 03/22/19 03:46 03/22/19 03:46 03/21/19 03/22/19 03/23/19 05:59 05:59 05:59 Intake Total 1220 700 Output Total 1050 1750 Balance 170 -1050 PT 24.8 SEC (12.0-15.0) H 03/22/19 03:46 INR 2.38 (0.83-1.16) H 03/22/19 03:46 - Time Spent With Patient Time Spent with Patient: greater than 35 minutes Time Spent with Patient: Greater than 35 minutes spent on this patients care, greater than 50% of time spent counseling, educating, and coordinating care regarding the above mentioned plan. ICD10 Worksheet Patient Problems: Problems Problem Status Onset Abnormal EKG Acute Fatigue Acute
--- NOTE | 2019-03-22 11:30 | SOAPPROG ---
SOAP Progress Note Assessment/Plan: Assessment/plan: 83-year-old male status post pacemaker placement with iatrogenic pneumothorax status post chest tube placement, 03/09/19. S/p larger chest tube insertion. Tube was pulled over the weekend. Repeat chest xray shows minimal residual pneumo. Urinary retention. S/p rabago cath insertion yesterday. Flomax started. Pt to be discharged with Rabago and will follow up with Urologist in [place]. New onset fever and confusion. Resolved. No source found. Dispo: Ok to go from surgical standpoint. Pt lives in [place]. Follow up in Dr. Zamora' office in 2 weeks. Get a chest xray prior to visit. S: Alert today. Ready to be discharged. O: Alert Afebrile RRR Chest: CTAB, no increased WOB, chest tube sites well dressed. Abdomen: soft, nontender 03/22/19 11:16 Objective: Vital Signs Temp Pulse Resp BP Pulse Ox 36.6 C 66 20 129/62 H 95 03/22/19 11:11 03/22/19 11:11 03/22/19 11:11 03/22/19 11:11 03/22/19 11:11 Microbiology 03/20/19 15:30 Urine Culture - Final Urine,Clean Catch Laboratory Results 03/22/19 03:46 03/22/19 03:46 03/21/19 03/22/19 03/23/19 05:59 05:59 05:59 Intake Total 1220 700 Output Total 1050 1750 Balance 170 -1050 PT 24.8 SEC (12.0-15.0) H 03/22/19 03:46 INR 2.38 (0.83-1.16) H 03/22/19 03:46 ICD10 Worksheet Patient Problems: Problems Problem Status Onset Abnormal EKG Acute Fatigue Acute
--- NOTE | 2019-03-22 12:42 | PDIAF ---
- Diagnosis Diagnosis: SSS s/p PPM with Pneumothorax Code Status: Full Code - Medication Management Discharge Medications: electronically signed and located in the Home Medication List. - Orders Services needed: Registered Nurse, Physical Therapy, Occupational Therapy Diet Recommendation: no restrictions on diet Diet Texture: Regular Texture Diet Additional Instructions: Follow up with urologist in [place] as scheduled. Dr Bahena 03/29/2019 at 1:45 pm Ok to change chest tube dressing sites. Take Tylenol as needed for pain. Follow up in Dr. Zamora' office when you come back to [place] in 2 weeks. Call to make an appointment. Get a chest xray prior to your visit. Call or go to the nearest emergency room if you develop shortness or breath or increased pain. Device Precaution: 1. No lifting more the 10 pounds for 1 week with Left Arm 2. No submerging incision site until completely healeds 3. Watch for sign of infection (fever, redness, swelling, drainage, night sweat or chills) Call Dr Smith's office immediately if you have any of these symptoms. 4. No Lifting Left arm higher the shoulder height for the next 6 weeks 5. No strenuous exercise for 2 weeks 8. Follow up for device and wound check on 04/04/2019 at 2:00 pm 9. Follow up with Zak BLEVINS on 04/04/2019 at 2:15 pm 10. Call [facility] [phone] with any question or concerns - Labs/Radiology PT/INR Date: 03/29/19 (Please send to [facility] for results) - Follow Up Care Current Providers and Referrals: AVIVA BEASLEY [Other] Chano Smith MD [Medical Doctor] - (Follow up with Zak BLEVINS on 2018 at 2:15 pm) Heather Casanova NP [Certified Nurse Practioner] - ( Follow up for device and wound check on 04/04/2019 at 2:00 pm) Marito Zamora MD [Medical Doctor] - follow up in 2 weeks (Nurse will call you with appointment)
--- NOTE | 2019-03-22 15:08 | GDS ---
[f rep st] DISCHARGE SUMMARY SUPERVISING [employer]KER: Dr. Bradford. ADMISSION DIAGNOSES: 1. Sick sinus syndrome with sinus arrest, noting pauses up to 3 seconds. 2. Lightheadedness and near syncope. 3. Valvular heart disease. 4. Paroxysmal atrial fibrillation. 5. Peripheral vascular disease, with history of abdominal aortic aneurysm repair, 12/09/2017. 6. History of transcatheter aortic valve replacement. 7. Chronic exertional hypoxia. 8. History of transient ischemic attack. 9. Sleep apnea. 10. History of pulmonary emboli. 11. Hypertension. 12. Hyperlipidemia. 13. Hypothyroidism. DISCHARGE DIAGNOSES: 1. Sick sinus syndrome, status post dual-chamber Biotronik pacemaker implantation. 2. Tension pneumothorax. 3. Fever. 4. Urine retention. 5. Valvular heart disease. 6. Paroxysmal atrial fibrillation. 7. Peripheral vascular disease. 8. History of transcatheter aortic valve replacement. 9. Chronic exertional hypoxia. 10. Transient ischemic attack. 11. Sleep apnea. 12. History of pulmonary emboli. 13. Hypertension. 14. Hyperlipidemia. 15. Hypothyroidism. CONSULTS DURING HOSPITALIZATION: Dr. Zamora of Surgery; Dr. Rodriguez of Hospital Services; Dr. Jameson by Urology. PROCEDURES PERFORMED DURING HOSPITALIZATION: 1. Echocardiogram. 2. Pacemaker implantation with ElsaLys Biotechronik MRI generator and Biotronik atrial and ventricular lead placement. 3. LINQ device removal. 4. Chest x-ray. 5. Chest tube implantation. 6. Chest tube removal. 7. Blood cultures. 8. EKG. Please see H and P. Briefly, the patient is an 83-year-old male who is known to our practice. He has been experiencing episodes of lightheadedness and near syncope. He had a LINQ loop recorder implantation, and when it was interrogated, showed several episodes of bradycardia with occasional sinus arrest, sinus pause up to 3 seconds. Due to this, he met with Dr. Smith and it was felt best that a permanent pacemaker be implanted. HOSPITAL COURSE: The patient was admitted to the [facility] on March 09, in prep for procedure and taken to the cardiac catheterization lab. There, he underwent pacemaker implantation and loop recorder removal. Postoperative chest x-ray showed new [id number] left pneumothorax. Dr. Zamora was paged from Surgery, who took the patient to OR and placed a left lateral chest tube. The patient was transitioned. Postoperatively, he was placed on our PCU unit. There, he remained with chest tube to wall suction and water seal for the next 10 days. He had been doing well. He was having daily chest x-rays, which noted improvement. He did have several device checks also, which noted device functioning within normal limits. This was done by a [employer] rep. On March 19, his chest tube was removed, after chest x-ray had shown almost completely full expansion of his lung. He was planned to go home on the , but unfortunately that morning, he did spike a fever with a T-max of 38.5 degrees Celsius. This was controlled with acetaminophen. Blood cultures were drawn, urine culture was drawn, Dr. Rodriguez of [facility] was consulted for evaluation. Laboratories were drawn and he was noted to have elevated white blood cell count of 11.55. Blood cultures were drawn, chest x-ray was repeated which showed no signs of pneumonia. Urine culture was also drawn. He is now currently 48 hours after his last fever. His blood cultures, preliminary after 36 hours, have shown no growth. His urine culture after showed no growth. His white blood cell count did return back to normal the following day at 7.64. The patient did also experience urine retention, with noting bladder residuals of greater 1000. A Leroy catheter was inserted. After he had been weaned off narcotics for 2 days, the Leroy was removed. Unfortunately, he continued to have urine retention. He did note that this had happened to him after spine surgery in the past. Dr. Marrufo of Urology was called with recommendation of starting on Flomax, and if continued unable to void, Leroy catheter should be left in with him to follow up with his regular urologist after discharge. Today , the patient reports he is feeling well. He has been up and walking in the unit. He reports no chest pain or pressure, continuous cardiac monitoring showing he is AV paced. He has been resumed on his routine warfarin therapy and his INRs are therapeutic. PHYSICAL EXAMINATION: Done today. GENERAL APPEARANCE: Elderly-appearing male. He is alert oriented to person, place, time and situation. Appears to be under no acute distress. VITAL SIGNS: Current vital signs are blood pressure of 129/62, heart rate of 66, respirations are 20, saturating 95% on 1 L nasal cannula. Temperature of 36.6 degrees Celsius. HEENT: Head is normocephalic. Lips tongue are pink and moist with no signs of cyanosis. Conjunctivae are pink. NECK: Trachea is midline, +2 carotid pulses bilateral. No auscultated bruits. No jugular vein distention. RESPIRATORY: Lungs are clear to auscultation. Mildly diminished on left lower base. No accessory muscle use. No intercostal muscle retraction. CARDIAC: Regular rate and regular rhythm, S1, S2. A 1/6 systolic murmur noted in the upper border. ABDOMEN: Soft, nontender. Bowel sounds x4 quadrants. No organomegaly. No palpable masses. SKIN: [place], warm and dry. No cyanosis. No clubbing. No peripheral edema. VASCULAR: +2 carotids bilateral, +2 radials bilateral, +1 dorsal pedal and posterior tibial pulses bilateral. LABORATORY STUDIES: Laboratory studies drawn today showing WBC of 5.76, hemoglobin of 10.8, hematocrit of 32.8, platelet count 124, INR 2.38. Sodium 138, potassium 4.2, chloride 108, CO2 22, BUN 29, creatinine 1.2, glucose 100, calcium 8.0. The patient had 2 blood cultures drawn on March 20, which preliminary after 36 hours had showed no growth. Urine culture drawn on March 22, 2019, showed no growth after 18 hours. The patient also had a GI PCR which showed no organisms detected. STUDIES: Pacemaker implantation, as mentioned above. Echocardiogram that was done during his pacemaker insertion showed no pericardial effusion; limited study. Chest tube insertion and removal as mentioned above. Most recent 12- lead electrocardiogram done on March 10, 2019, showing AV-paced rhythm. Chest x -ray done on March 20, 2018, showed nearly completely resolved tiny left apical pneumothorax. Improved aeration in bibasilar atelectasis. No interstitial edema or pleural effusion. DISCHARGE DISPOSITION: The patient will be discharged to a care home facility in [place] where he lives. He is under activity restrictions of not lifting more than 10 pounds with the left arm for the next week and not lifting the left arm higher than shoulder height for the next 6 weeks. DISCHARGE MEDICATIONS: Include aspirin 81 mg p.o. daily, thyroid 90 mg p.o. daily, rosuvastatin 10 mg p.o. h.s., Protonix 40 mg p.o. daily, warfarin 4 mg p.o. h.s., Aleve 440 mg p.o. daily, multivitamin 1 tablet p.o. daily, _ injection 100 mg IV every 56 days, herbs and supplements daily, 500 one application twice daily, Colace 100 mg p.o. daily, acetaminophen 1500 mg p.o. h.s., Flomax 0.4 mg p.o. daily. DISCHARGE INSTRUCTIONS: Post pacemaker discharge instructions: Went over with the patient and his . They verbalized understanding. Patient instructions including activity restrictions, medication compliance and followup. The patient has a followup appointment next week with his urologist in [facility]. The patient also has a followup device and wound check in our [place] office on April 04. He will also follow up with Dr. Zamora on that day; appointment has not been set. Our nurse will call him to make an appointment. He is to have a chest x-ray done prior to this procedure. As for his INRs, he is usually followed by pharmacist at the [facility]. I have asked for him to have an INR drawn in 1 week's time for re-evaluation and results will be sent to our office. At the time of discharge, the patient and verbalized understanding of all instructions. They have no questions. I did call a report to Dr. Lerma of [facility]. Total time spent on discharge, greater than 30 minutes. /[id number]/[id number]
--- NOTE | 2019-03-22 15:49 | ASDISCHSUM ---
Discharge Information Plan Status:SNF Medically Cleared to Leave:03/22/2019 Discharge Date:03/22/2019 02:32 PM D/C Disposition: ADT D/C Disposition:[id number] Projected Discharge Date:03/22/2019 11:00 AM Transportation at D/C: Discharge Delay Reason: Follow-Up Date:03/22/2019 11:00 AM Discharge Slot: Final Diagnosis: Placement Information Referral Type:*Home Health Care Services Referral ID:[id number] Provider Name: Address 1: Phone Number: Address 2: Fax Number: City: Selection Factors: State: Referral Type:*Mcfp/SNF Referral ID:[id number] Provider Name:[facility] Bed Address 1:[address] Phone Number: Address 2: Fax Number: [facility]:[place] Selection Factors: State:[place] Patient Contact Information Contact Name:DL Relationship: Address:[facility] [address] City:[place] Phone: State/Zip Code:[place] [address] Email: Financial Information Financial Class:Medicare Primary Plan Desc:MEDICARE INPATIENT Primary Plan Number:[id number] Secondary Plan Desc:[employer]/MDR SUPPLEMENT Secondary Plan Number:[id number] Assessment Information [facility] CM Progress Note CM Note CM Note Notes: Pt is an 83 yo M who presents with SSS. Pt had pacemaker placed. Currently has a chest tube. No therapies are ordered at this time. CM to follow. Plan: TBD Date Signed: 03/11/2019 02:02 PM Electronically Signed By:HOLLIS Arenas LACE TAMARA Length of stay for Answers: 7-13 days current admission Acuity / Level of Answers: Yes Care: Did the patient have an inpatient admission? Comorbidities - select Answers: Chronic pulmonary disease all that apply Opioid dependence / Chronic pain Previous myocardial infarction Other Notes: AFib # of Emergency department Answers: 1-2 visits in the last 6 months Score: 17 Date Signed: 03/20/2019 02:50 PM Electronically Signed By:Kelsey Verdin [facility] CM Progress Note CM Note CM Note Notes: CM reviewed pts chart. PT is recommending HC. CM met w/ pt and his for dispo planning. Both are agreeable to having HC services. Pt reports that he goes to [facility] and has been to their outpatient rehab services. CM made a referral to [facility]. CM spoke to their admissions person and they are able to accept. Pts address is [address] [place], [place] [id number]. CM confirmed pts phone number and PCP. CM to follow. Plan: [facility]; PT, RN Date Signed: 03/14/2019 03:18 PM Electronically Signed By:HOLLIS Hutchins [facility] CM Progress Note CM Note CM Note Notes: CM reviewed pts chart. The plan remains the same. Pt will d/c home with [facility] when medically stable. CM to follow. Plan [facility]; PT, RN Date Signed: 03/17/2019 04:12 PM Electronically Signed By:HOLLIS Hutchins [facility] Progress Note CM Note CM Note Notes: CM discussed case w/ FELICITY Hassan. Pt is confused and has a fever today. Surgery is consulting hospitalist. CM sent updates to [facility]. CM to follow. Plan: [facility]; PT, OT, RN Date Signed: 03/20/2019 10:15 AM Electronically Signed By:HOLLIS Hutchins [facility] Progress Note CM Note CM Note Notes: BRUCE spoke to FELICITY Wing and Dr. Ayala about this case. Pts is worried that pt will be unable to do the stairs in their home. is requesting that pt gets into [facility]. BRUCE spoke to Olga, case planner at [facility] (P#: [phone]). CM sent over referral on [employer]. If pt does not get into the Swing Bed. [facility] can follow up. CM to follow. Plan: [facility] Date Signed: 03/21/2019 12:29 PM Electronically Signed By:HOLLIS Hutchins Case Management Discharge Plan Note Case Management Discharge Discharge Order Complete? Answers: Yes Patient to Obtain Answers: Other Notes: [facility] ed Medications Transportation Arranged Answers: Family/Friends EMTALA Complete Answers: No Case Management Transport Answers: No Form Complete Faxed Final Orders Answers: Yes Agency/Facility Transfer Answers: Yes Report Printed & Faxed to Receiving Agency Family Notified Answers: Yes Discharge Comments Notes: Pts case discussed in tx rounds and w/ FELICITY Wing. Pt has been accepted to [facility]. FELICITY Wing called their doctor and completed the peer to peer, per their request. Pts is bringing pt to [facility] does not provide transportation from [facility] to their facility. NOEMY Carvalho will call to give report. DC orders sent. CM availablefor changes. Plan: [facility] Date Signed: 03/22/2019 03:47 PM Electronically Signed By:HOLLIS Hutchins Intervention Information Intervention Type:*IM-Signed Date of Service:03/17/2019 02:40 PM Patient Type:Inpatient Staff Member:Kelsey Verdin Hours: Discipline: Severity: Comment:
--- NOTE | 2019-03-27 11:21 | PQFORM ---
PHYSICIAN QUERY FORM Needs Your Response This query form is being sent to you to assure this patient record is coded properly. Please respond to the question below: WILDLIFE ECOLOGY PROFESSOR QUESTION: Hi Do you consider this patients Pneumothorax occurring post pacemaker placement to be a Complication of the procedure ? _x_ Yes __ No __ Other (Please Specify ) __ Unable to determine Thank You Edie THEODORE Field Logistics Coordinator INSTRUCTIONS FOR RESPONSE: Answer question by clicking on the "Edit Document" button. Move cursor to area below the stars. When complete, hit "Save." Click on the "Sign" button, then click "Sign" again. Type in your PIN and hit "Enter." MTDD
== END 2019-03-22 14:32 | disposition home health service (06) | DRG 243 ==
LOC: FCATH 07:20 → F2W 10:57 → F2N 16:08 → F2W 03-10 14:40 → OBSVTOIN 03-10 16:15
PROVIDERS: ADMIT Internal Medicine Cardiovascular Disease; ATTEND Internal Medicine Cardiovascular Disease
PROC: 0JH606Z Insertion of Pacemaker, Dual Chamber into Chest Subcutaneous Tissue and Fascia, Open Approach (ICD-10-PCS; principal; 2019-03-09)
PROC: 02H63JZ Insertion of Pacemaker Lead into Right Atrium, Percutaneous Approach (ICD-10-PCS; principal; 2019-03-09)
PROC: 0JPT02Z Removal of Monitoring Device from Trunk Subcutaneous Tissue and Fascia, Open Approach (ICD-10-PCS; principal; 2019-03-09)
PROC: 02HK3JZ Insertion of Pacemaker Lead into Right Ventricle, Percutaneous Approach (ICD-10-PCS; principal; 2019-03-09)
PROC: 0W9B00Z Drainage of Left Pleural Cavity with Drainage Device, Open Approach (ICD-10-PCS; 2019-03-15)
DX: I49.5 Sick sinus syndrome (principal); J95.811 Postprocedural pneumothorax; R33.9 Retention of urine, unspecified; I48.0 Paroxysmal atrial fibrillation; I10 Essential (primary) hypertension; J44.9 Chronic obstructive pulmonary disease, unspecified; I25.10 Atherosclerotic heart disease of native coronary artery without angina pectoris; R09.02 Hypoxemia; G47.33 Obstructive sleep apnea (adult) (pediatric); E78.5 Hyperlipidemia, unspecified; E03.9 Hypothyroidism, unspecified; I73.9 Peripheral vascular disease, unspecified; I25.2 Old myocardial infarction; Z86.73 Personal history of transient ischemic attack (TIA), and cerebral infarction without residual deficits; Z95.1 Presence of aortocoronary bypass graft; Z86.711 Personal history of pulmonary embolism; Z87.19 Personal history of other diseases of the digestive system; Z99.81 Dependence on supplemental oxygen; Z79.01 Long term (current) use of anticoagulants; Z95.2 Presence of prosthetic heart valve
CPT/HCPCS: 97116-GP; 97162-GP; 97166-GO; 97530-GO; 97530-GP; 97535-GO; A4649; C1785; C1898; J0690; J1650; J1885; J1940; J2250; J3010; Q9967

== ENCOUNTER → 2019-04-04 | Outpatient (CLI) | payer OTHER, MEDICARE | LOC: FIMAGING 11:38 | PROVIDERS: ATTEND Nurse Practitioner Family | DX: Z09 Encounter for follow-up examination after completed treatment for conditions other than malignant neoplasm (principal); J98.6 Disorders of diaphragm; Z95.0 Presence of cardiac pacemaker ==